=== PATIENT | female | born 1965 | race Caucasian/White ===

== ENCOUNTER 2017-06-23 15:16 | Emergency (ER) | payer BC, MEDICAID ==
[~2017-06-23] VITALS: Ht 172.7 cm; Wt 82.4 kg
[~2017-06-23 15:16] MED LIST: BACDS PO; HYDR-3965 PO; HYDR-569 PO; OMEP-84 PO; ONDA4TAB6 PO; ONDA8TAB6 PO
[2017-06-23 15:19] VITALS: BP 152/118
== END 2017-06-24 01:37 | disposition left against medical advice (07) ==
LOC: ER 15:16
DX: M54.9 Dorsalgia, unspecified (principal); Z53.21 Procedure and treatment not carried out due to patient leaving prior to being seen by health care provider

== ENCOUNTER 2017-07-30 23:01 | Emergency (ER) | payer BC, MEDICAID ==
[~2017-07-30] VITALS: Ht 172.7 cm; Wt 77.8 kg
[2017-07-31] MEDS ORDERED: HYDROcodone/acetaminophen 10/325mg tab PO ONE (00:15)
[2017-07-31] MEDS ORDERED: HYDR-3965 PO (00:20)
[2017-07-31] MEDS ORDERED: ketorolac trometh inj. 60 MG/2 ML VIAL IM ONE (00:45)
[2017-07-31 01:11] VITALS: BP 178/108
== END 2017-07-31 01:13 | disposition home or self-care (01) ==
LOC: ER 23:02
DX: S52.502A Unspecified fracture of the lower end of left radius, initial encounter for closed fracture (principal); S42.202A Unspecified fracture of upper end of left humerus, initial encounter for closed fracture; M54.5 Low back pain; I10 Essential (primary) hypertension; E11.9 Type 2 diabetes mellitus without complications; G89.29 Other chronic pain; Z88.5 Allergy status to narcotic agent; Z88.6 Allergy status to analgesic agent; Z98.890 Other specified postprocedural states; Z60.2 Problems related to living alone; Z56.0 Unemployment, unspecified; W01.0XXA Fall on same level from slipping, tripping and stumbling without subsequent striking against object, initial encounter; Y93.89 Activity, other specified; Y92.89 Other specified places as the place of occurrence of the external cause; Y99.8 Other external cause status
CPT/HCPCS: 29125; 72100; 73030; 73110; 96372; 99284; A4565; J1885

== ENCOUNTER 2017-08-01 20:41 | Emergency (ER) | payer BC, MEDICAID ==
[~2017-08-01] VITALS: Ht 172.7 cm; Wt 82.0 kg
[2017-08-01] MEDS ORDERED: ketorolac trometh inj. 60 MG/2 ML VIAL IM ONE (21:45)
[2017-08-01 22:27] VITALS: BP 169/60
== END 2017-08-01 22:29 | disposition home or self-care (01) ==
LOC: ER 20:42
DX: S62.102D Fracture of unspecified carpal bone, left wrist, subsequent encounter for fracture with routine healing (principal); I10 Essential (primary) hypertension; E11.9 Type 2 diabetes mellitus without complications; G89.29 Other chronic pain; Z98.890 Other specified postprocedural states; Z56.0 Unemployment, unspecified; Z88.5 Allergy status to narcotic agent; Z79.899 Other long term (current) drug therapy; W01.0XXD Fall on same level from slipping, tripping and stumbling without subsequent striking against object, subsequent encounter
CPT/HCPCS: 29125; 96372; 99284; J1885; J7120

== ENCOUNTER 2017-10-01 23:21 | Emergency (ER) | payer BC, MEDICAID ==
[~2017-10-01] VITALS: Ht 172.7 cm; Wt 75.0 kg
[2017-10-02] MEDS ORDERED: normal saline 1000ML IV soln IVB ONE (00:05)
[2017-10-02 00:23] LABS: BASOPHILS # (AUTO) 0.1 X10'3 (0-0.2); BASOPHILS % (AUTO) 1.2 % (0-1); EOSINOPHILS # (AUTO) 0.2 X10'3 (0-0.9); EOSINOPHILS % (AUTO) 2.7 % (0-6); HEMATOCRIT 37.6 % (35.0-45.0); HEMOGLOBIN 12.8 g/dl (12.0-16.0); LYMPHOCYTES # (AUTO) 1.6 X10'3 (1.1-4.8); LYMPHOCYTES % (AUTO) 28.7 % (21-51); MEAN CORPUSCULAR HEMOGLOBIN 30.1 PG (27.0-31.0); MEAN CORPUSCULAR VOLUME 88.4 FL (78-98); MEAN PLATELET VOLUME 8.1 FL (7.4-10.4); MONOCYTES # (AUTO) 0.6 X10'3 (0-0.9); MONOCYTES % (AUTO) 9.7 % (2-12); NEUTROPHILS # (AUTO) 3.2 X10'3 (1.8-7.7); NEUTROPHILS % (AUTO) 57.7 % (42-75); PLATELET COUNT 313 X10'3 (140-440); RED BLOOD COUNT 4.26 X10'6 (4.20-5.60); RED CELL DISTRIBUTION WIDTH 13.6 % (11.5-14.5); WHITE BLOOD COUNT 5.7 X10'3 (4.5-11.0)
[2017-10-02 00:42] LABS: ALANINE AMINOTRANSFERASE 19 U/L (12-78); ALBUMIN 3.1 G/DL (3.4-5.0); ALBUMIN/GLOBULIN RATIO 0.9 (1.1-1.5); ALKALINE PHOSPHATASE 87 IU/L (46-116); ANION GAP 10 (8-16); ASPARTATE AMINO TRANSFERASE 16 U/L (10-37); BILIRUBIN,TOTAL 0.3 MG/DL (0.1-1.0); BLOOD UREA NITROGEN 20 MG/DL (7-18); BUN/CREATININE RATIO 22.7 (6.6-38.0); CALCIUM 8.3 MG/DL (8.5-10.1); CHLORIDE 109 MMOL/L (99-107); CREATININE 0.88 MG/DL (0.40-0.90); GLUCOSE 128 MG/DL (70-104); POTASSIUM 3.4 MMOL/L (3.5-5.1); SODIUM 143 MMOL/L (135-145); TOTAL CARBON DIOXIDE 24.5 MMOL/L (24-32); TOTAL PROTEIN 6.5 G/DL (6.4-8.2); eGFR 67 ML/MIN
[2017-10-02 00:45] LABS: TROPONIN I < 0.04 NG/ML (0.0-0.05)
[2017-10-02 00:46] LABS: CLARITY,URINE CLEAR (Clear); COLOR,URINE YELLOW (Yellow); GLUCOSE, URINE NEGATIVE (Neg); KETONES,URINE NEGATIVE (Neg); LEUKOCYTE ESTERASE ,URINE NEGATIVE (Neg); NITRITES, URINE NEGATIVE (Neg); OCCULT BLOOD,URINE TRACE-LYSED (Neg); PROTEIN,URINE NEGATIVE (Neg); UROBILINOGEN,URINE 0.2 E.U/dL (0.2-1.0)
[2017-10-02 00:49] LABS: UA COLLECTION TYPE CLN CATCH MIDSTREAM
[2017-10-02 00:53] LABS: BACTERIA,URINE 2+ /HPF (Neg); RBC,URINE 0-2 /HPF (0-2); SQUAMOUS EPITHELIAL CELL,UR FEW /LPF (FEW); WBC,URINE 0-4 /HPF (0-4)
[2017-10-02 00:59] LABS: URINE AMPHETAMINE SCREEN POSITIVE (Neg); URINE BARBITUATE SCREEN NEGATIVE (Neg); URINE BENZODIAZEPINES SCREEN NEGATIVE (Neg); URINE CANNABINOID SCREEN NEGATIVE (Neg); URINE COCAINE SCREEN NEGATIVE (Neg); URINE METHADONE SCREEN NEGATIVE (Neg); URINE OPIATE SCREEN NEGATIVE (Neg); URINE PHENCYCLIDINE SCREEN NEGATIVE (Neg)
[2017-10-02 01:48] VITALS: BP 143/98
== END 2017-10-02 01:49 | disposition home or self-care (01) ==
LOC: ER 23:22
DX: E86.0 Dehydration (principal); F15.10 Other stimulant abuse, uncomplicated; I10 Essential (primary) hypertension; E11.9 Type 2 diabetes mellitus without complications; Z88.6 Allergy status to analgesic agent
CPT/HCPCS: 36415; 80053; 80305; 81001; 84484; 85025; 93005; 96360; 99285; J7030

== ENCOUNTER 2018-01-20 13:43 | Emergency (ER) | payer BC, MEDICAID ==
[~2018-01-20] VITALS: Ht 172.7 cm; Wt 83.0 kg
[2018-01-20 14:13] LABS: BASOPHILS % (AUTO) 0.3 % (0-1); EOSINOPHILS # (AUTO) 0.1 X10'3 (0-0.9); EOSINOPHILS % (AUTO) 2.6 % (0-6); HEMATOCRIT 40.3 % (35.0-45.0); LYMPHOCYTES # (AUTO) 1.3 X10'3 (1.1-4.8); MEAN CORPUSCULAR HGB CONC 34.7 % (33.0-36.5); MEAN CORPUSCULAR VOLUME 89.3 FL (78-98); MEAN PLATELET VOLUME 8.2 FL (7.4-10.4); MONOCYTES # (AUTO) 0.4 X10'3 (0-0.9); MONOCYTES % (AUTO) 7.1 % (2-12); NEUTROPHILS # (AUTO) 3.7 X10'3 (1.8-7.7); PLATELET COUNT 321 X10'3 (140-440); RED BLOOD COUNT 4.51 X10'6 (4.20-5.60); RED CELL DISTRIBUTION WIDTH 12.7 % (11.5-14.5); WHITE BLOOD COUNT 5.6 X10'3 (4.5-11.0)
[2018-01-20 14:18] LABS: PROTHROMBIN TIME 10.3 SECONDS (9.0-12.0)
[2018-01-20 14:23] LABS: ALANINE AMINOTRANSFERASE 23 U/L (12-78); ALBUMIN 3.5 G/DL (3.4-5.0); ALKALINE PHOSPHATASE 72 IU/L (46-116); ANION GAP 10 (8-16); ASPARTATE AMINO TRANSFERASE 13 U/L (10-37); BILIRUBIN,TOTAL 0.3 MG/DL (0.1-1.0); BLOOD UREA NITROGEN 20 MG/DL (7-18); BUN/CREATININE RATIO 20.2 (6.6-38.0); CALCIUM 8.7 MG/DL (8.5-10.1); CHLORIDE 107 MMOL/L (99-107); CREATININE 0.99 MG/DL (0.40-0.90); GLUCOSE 126 MG/DL (70-104); POTASSIUM 3.8 MMOL/L (3.5-5.1); SODIUM 142 MMOL/L (135-145); TOTAL CARBON DIOXIDE 25.5 MMOL/L (24-32); TOTAL PROTEIN 7.1 G/DL (6.4-8.2); eGFR 59 ML/MIN
[2018-01-20 14:25] LABS: URINE HCG NEGATIVE (NEG)
[2018-01-20 14:30] LABS: CLARITY,URINE CLEAR (Clear); COLOR,URINE YELLOW (Yellow); GLUCOSE, URINE NEGATIVE (Neg); KETONES,URINE NEGATIVE (Neg); LEUKOCYTE ESTERASE ,URINE NEGATIVE (Neg); NITRITES, URINE NEGATIVE (Neg); OCCULT BLOOD,URINE NEGATIVE (Neg); PROTEIN,URINE NEGATIVE (Neg); UROBILINOGEN,URINE 0.2 E.U/dL (0.2-1.0)
[2018-01-20 14:36] LABS: UA COLLECTION TYPE CLN CATCH MIDSTREAM
[2018-01-20] MEDS ORDERED: ondansetron 4mg rapidly disintigrating tab PO ONE (14:55)
[2018-01-20] MEDS ORDERED: famotidine 20mg tablet PO ONE (14:55)
[2018-01-20] MEDS ORDERED: ONDA4TAB9 SL (14:56)
[2018-01-20 15:37] VITALS: BP 144/97
== END 2018-01-20 15:42 | disposition home or self-care (01) ==
LOC: ER 13:44
DX: K52.9 Noninfective gastroenteritis and colitis, unspecified (principal); I10 Essential (primary) hypertension; E11.9 Type 2 diabetes mellitus without complications; G89.29 Other chronic pain; Z98.890 Other specified postprocedural states; Z60.2 Problems related to living alone; Z56.0 Unemployment, unspecified; Z88.5 Allergy status to narcotic agent; Z88.6 Allergy status to analgesic agent; Z79.2 Long term (current) use of antibiotics; Z79.899 Other long term (current) drug therapy
CPT/HCPCS: 36415; 80053; 81003; 81025; 85025; 85610; 99284

== ENCOUNTER 2018-05-29 01:18 | Emergency (ER) | payer BC, MEDICAID ==
[~2018-05-29 01:18] MED LIST changes: +HYDR-4383 PO; -HYDR-569 PO; +SULF1TAB49 PO
[2018-05-29 01:23] VITALS: BP 173/107
== END 2018-05-29 04:18 | disposition home or self-care (01) ==
LOC: ER 01:19
DX: N75.1 Abscess of Bartholin's gland (principal); I10 Essential (primary) hypertension; E11.9 Type 2 diabetes mellitus without complications; G89.29 Other chronic pain; Z56.0 Unemployment, unspecified; Z88.6 Allergy status to analgesic agent
CPT/HCPCS: 56420; 99283

== ENCOUNTER 2018-06-09 18:23 | Emergency (ER) | payer BC, MEDICAID ==
[~2018-06-09] VITALS: Ht 172.7 cm; Wt 75.0 kg
[~2018-06-09 18:23] MED LIST changes: -SULF1TAB49 PO
[2018-06-09] MEDS ORDERED: normal saline 1000ML IV soln IVB ONE (20:55)
[2018-06-09 21:14] LABS: BASOPHILS % (AUTO) 0.4 % (0-1); EOSINOPHILS # (AUTO) 0.1 X10'3 (0-0.9); EOSINOPHILS % (AUTO) 1.8 % (0-6); HEMATOCRIT 40.4 % (35.0-45.0); LYMPHOCYTES # (AUTO) 1.5 X10'3 (1.1-4.8); LYMPHOCYTES % (AUTO) 22.4 % (21-51); MEAN CORPUSCULAR HGB CONC 34.6 g/dL (33.0-36.5); MEAN CORPUSCULAR VOLUME 89.6 FL (78-98); MEAN PLATELET VOLUME 7.4 FL (7.4-10.4); MONOCYTES # (AUTO) 0.5 X10'3 (0-0.9); MONOCYTES % (AUTO) 6.7 % (2-12); NEUTROPHILS # (AUTO) 4.7 X10'3 (1.8-7.7); NEUTROPHILS % (AUTO) 68.7 % (42-75); PLATELET COUNT 404 X10'3 (140-440); RED CELL DISTRIBUTION WIDTH 12.4 % (11.5-14.5); WHITE BLOOD COUNT 6.8 X10'3 (4.5-11.0)
[2018-06-09 21:30] LABS: ALANINE AMINOTRANSFERASE 21 U/L (12-78); ALBUMIN 3.4 G/DL (3.4-5.0); ALBUMIN/GLOBULIN RATIO 0.9 (1.1-1.5); ALKALINE PHOSPHATASE 90 IU/L (46-116); ANION GAP 10 (8-16); ASPARTATE AMINO TRANSFERASE 19 U/L (10-37); BILIRUBIN,TOTAL 0.5 MG/DL (0.1-1.0); BLOOD UREA NITROGEN 20 MG/DL (7-18); BUN/CREATININE RATIO 25.3 (6.6-38.0); CALCIUM 8.9 MG/DL (8.5-10.1); CHLORIDE 103 MMOL/L (99-107); CREATININE 0.79 MG/DL (0.40-0.90); GLUCOSE 93 MG/DL (70-104); POTASSIUM 3.1 MMOL/L (3.5-5.1); SODIUM 140 MMOL/L (135-145); TOTAL CARBON DIOXIDE 26.6 MMOL/L (24-32); TOTAL PROTEIN 7.3 G/DL (6.4-8.2); eGFR 76 ML/MIN
[2018-06-09 21:32] LABS: ETHANOL < 0.010 GM/DL (0.0-0.010); TROPONIN I < 0.04 NG/ML (0.0-0.05)
[2018-06-09] MEDS ORDERED: cloNIDine 0.1 mg tablet PO ONE (21:50)
[2018-06-09] MEDS ORDERED: potassium Cl oral solution 20 MEQ/15 ML PO ONE (22:05)
[2018-06-10 00:26] VITALS: BP 141/85
== END 2018-06-10 01:17 | disposition home or self-care (01) ==
LOC: ER 18:23
DX: R55 Syncope and collapse (principal); I10 Essential (primary) hypertension; E11.9 Type 2 diabetes mellitus without complications; G89.29 Other chronic pain; F17.200 Nicotine dependence, unspecified, uncomplicated; Z88.6 Allergy status to analgesic agent; Z79.899 Other long term (current) drug therapy; Z60.2 Problems related to living alone; Z56.0 Unemployment, unspecified
CPT/HCPCS: 36415; 71045; 80053; 80320; 82140; 84484; 85025; 93005; 96360; 99284; J7030

== ENCOUNTER 2018-08-21 09:00 | Emergency (ER) | payer BC, MEDICAID ==
[~2018-08-21] VITALS: Ht 172.7 cm; Wt 75.0 kg
[2018-08-21 09:07] VITALS: BP 173/107
[2018-08-21] MEDS ORDERED: OMEP40CA37 PO (09:27)
== END 2018-08-21 09:39 | disposition home or self-care (01) ==
LOC: ER 09:01
DX: K43.9 Ventral hernia without obstruction or gangrene (principal); I10 Essential (primary) hypertension; E11.9 Type 2 diabetes mellitus without complications; G89.29 Other chronic pain; Z98.51 Tubal ligation status; Z98.890 Other specified postprocedural states; F17.200 Nicotine dependence, unspecified, uncomplicated; Z88.5 Allergy status to narcotic agent; Z88.8 Allergy status to other drugs, medicaments and biological substances; Z79.899 Other long term (current) drug therapy; Z56.0 Unemployment, unspecified; Z60.2 Problems related to living alone
CPT/HCPCS: 99283

== ENCOUNTER 2018-09-23 01:02 | Emergency (ER) | payer BC, MEDICAID ==
[~2018-09-23] VITALS: Ht 172.7 cm; Wt 79.5 kg
[2018-09-23 01:06] VITALS: BP 149/102
== END 2018-09-23 02:38 | disposition home or self-care (01) ==
LOC: ER 01:02
DX: S62.102A Fracture of unspecified carpal bone, left wrist, initial encounter for closed fracture (principal); I10 Essential (primary) hypertension; G89.29 Other chronic pain; E11.9 Type 2 diabetes mellitus without complications; F17.210 Nicotine dependence, cigarettes, uncomplicated; Z56.0 Unemployment, unspecified; Z98.51 Tubal ligation status; Z88.5 Allergy status to narcotic agent; Z88.6 Allergy status to analgesic agent; W20.8XXA Other cause of strike by thrown, projected or falling object, initial encounter; Y93.89 Activity, other specified; Y92.89 Other specified places as the place of occurrence of the external cause; Y99.8 Other external cause status
CPT/HCPCS: 29125; 73110; 99284

== ENCOUNTER 2018-10-07 11:46 | Outpatient (CLI) | payer BC, MEDICAID ==
[2018-10-07 11:49] VITALS: BP 153/83
== END 2018-10-07 13:00 | disposition home or self-care (01) ==
LOC: ORTHO 11:46
PROVIDERS: ATTEND Orthopaedic Surgery
DX: M18.9 Osteoarthritis of first carpometacarpal joint, unspecified (principal); M19.032 Primary osteoarthritis, left wrist; M85.642 Other cyst of bone, left hand
CPT/HCPCS: 29125; 73110; G0463

== ENCOUNTER 2018-12-31 22:55 | Emergency (ER) | payer BC, MEDICAID ==
[~2018-12-31] VITALS: Ht 172.7 cm; Wt 65.6 kg
[2018-12-31 23:03] VITALS: BP 157/108
[2019-01-01] MEDS ORDERED: ketorolac trometh. 30mg/ml inj. IM ONE (00:10)
[2019-01-01] MEDS ORDERED: CYCL-1 PO (00:14)
[2019-01-01] MEDS ORDERED: IBUP-1985 PO (00:14)
== END 2019-01-01 01:11 | disposition home or self-care (01) ==
LOC: ER 22:56
DX: G89.29 Other chronic pain (principal); M54.5 Low back pain; I10 Essential (primary) hypertension; Z98.51 Tubal ligation status; Z56.0 Unemployment, unspecified; Z88.6 Allergy status to analgesic agent; Z79.2 Long term (current) use of antibiotics; Z79.899 Other long term (current) drug therapy
CPT/HCPCS: 72100; 96372; 99284; J1885

== ENCOUNTER 2019-01-23 19:37 | Inpatient (IN) | payer BC, MEDICAID ==
[~2019-01-23] VITALS: Ht 170.2 cm; Wt 70.0 kg
[~2019-01-23 19:37] MED LIST changes: +CYCL-1 PO; +IBUP-1985 PO
[2019-01-23] MEDS ORDERED: morphine 4 MG/ML inj SYRINge IV ONE (19:45)
[2019-01-23] MEDS ORDERED: normal saline 1000ML IV soln IVB ONE (19:45)
[2019-01-23] MEDS ORDERED: ondansetron/PF 4mg/2ml inj IV ONE (19:45)
[2019-01-23 19:57] LABS: BASOPHILS % (AUTO) 0.5 % (0-1); EOSINOPHILS # (AUTO) 0.1 X10'3 (0-0.9); EOSINOPHILS % (AUTO) 0.9 % (0-6); HEMATOCRIT 39.8 % (35.0-45.0); HEMOGLOBIN 13.6 g/dl (12.0-16.0); LYMPHOCYTES # (AUTO) 2.1 X10'3 (1.1-4.8); LYMPHOCYTES % (AUTO) 23.9 % (21-51); MEAN CORPUSCULAR HEMOGLOBIN 31.1 PG (27.0-31.0); MEAN CORPUSCULAR HGB CONC 34.2 g/dL (33.0-36.5); MEAN CORPUSCULAR VOLUME 90.9 FL (78-98); MEAN PLATELET VOLUME 7.5 FL (7.4-10.4); MONOCYTES # (AUTO) 0.6 X10'3 (0-0.9); MONOCYTES % (AUTO) 7.5 % (2-12); NEUTROPHILS # (AUTO) 5.8 X10'3 (1.8-7.7); NEUTROPHILS % (AUTO) 67.2 % (42-75); PLATELET COUNT 405 X10'3 (140-440); RED BLOOD COUNT 4.38 X10'6 (4.20-5.60); RED CELL DISTRIBUTION WIDTH 12.5 % (11.5-14.5); WHITE BLOOD COUNT 8.7 X10'3 (4.5-11.0)
[2019-01-23] MEDS: morphine 2 MG/ML inj. syringe IV PRN ×2 (20:04→21:46)
[2019-01-23 20:07] LABS: PARTIAL THROMBOPLASTIN TIME 24 SECONDS (22-32)
[2019-01-23 20:09] LABS: ALANINE AMINOTRANSFERASE 30 U/L (12-78); ALBUMIN 3.5 G/DL (3.4-5.0); ALBUMIN/GLOBULIN RATIO 0.9 (1.1-1.5); ALKALINE PHOSPHATASE 99 IU/L (46-116); ANION GAP 14 (8-16); ASPARTATE AMINO TRANSFERASE 22 U/L (10-37); BILIRUBIN,TOTAL 0.6 MG/DL (0.1-1.0); BLOOD UREA NITROGEN 15 MG/DL (7-18); BUN/CREATININE RATIO 12.2 (6.6-38.0); CALCIUM 9.2 MG/DL (8.5-10.1); CHLORIDE 104 MMOL/L (99-107); CREATININE 1.23 MG/DL (0.40-0.90); GLUCOSE 114 MG/DL (70-104); POTASSIUM 3.3 MMOL/L (3.5-5.1); SODIUM 141 MMOL/L (135-145); TOTAL CARBON DIOXIDE 23.4 MMOL/L (24-32); TOTAL PROTEIN 7.6 G/DL (6.4-8.2); eGFR 46 ML/MIN
[2019-01-23] MEDS ORDERED: iohexol 350MG/ML 100ml bottle IV ONE (20:11)
[2019-01-23 20:17] LABS: CREATINE KINASE 185 U/L (26-192)
--- NOTE | 2019-01-23 20:18 | NUR ---
REPORTED INCIDENT TO [facility].
--- NOTE | 2019-01-23 20:43 | NUR ---
[employer] AT BEDSIDE WITH PT
[2019-01-23 21:25] LABS: URINE AMPHETAMINE SCREEN POSITIVE (Neg); URINE BARBITUATE SCREEN NEGATIVE (Neg); URINE BENZODIAZEPINES SCREEN NEGATIVE (Neg); URINE CANNABINOID SCREEN NEGATIVE (Neg); URINE COCAINE SCREEN NEGATIVE (Neg); URINE METHADONE SCREEN NEGATIVE (Neg); URINE OPIATE SCREEN POSITIVE (Neg); URINE PHENCYCLIDINE SCREEN NEGATIVE (Neg)
[2019-01-23] MEDS ORDERED: magnesium 4gm in 100ml NS 100 ML IV PRN (23:30)
[2019-01-23] MEDS ORDERED: ondansetron/PF 4mg/2ml inj IV PRN (23:30)
[2019-01-23] MEDS ORDERED: potassium Cl 20 mEq SR tablet PO PRN ×2 (23:30)
[2019-01-23] MEDS ORDERED: magnesium 2GM in 50ml NS 50 ML IV PRN (23:30)
[2019-01-23] MEDS ORDERED: magnesium Cl slow-release 64mg tablet PO PRN (23:30)
[2019-01-23] MEDS ORDERED: potassium CL 10mEq/100ml bag 100 ML IV PRN ×2 (23:30)
[2019-01-23] MEDS: normal saline 1000ml 1,000 ML IV SCH (23:43)
[2019-01-24 00:30] VITALS: BP 137/86
[2019-01-24] MEDS: HYDROmorphone 1 mg/ml syringe IV PRN (00:34)
[2019-01-24] MEDS: normal saline 1000ml 1,000 ML IV SCH ×3 (00:49→21:37)
[2019-01-24 06:00] VITALS: BP 139/84
--- NOTE | 2019-01-24 06:00 | NUR ---
Patient in room ORTHO 4014. I have received report from Keke, RN and had the opportunity to ask questions and assume patient care. Addendum: 01/24/19 at 0633 by Michelle Brown RN Amended: Links added.
--- NOTE | 2019-01-24 06:37 | NUR ---
Patient in room ORTHO 4014. I have received report from DOLLY Caicedo and had the opportunity to ask questions and assume patient care. Addendum: 01/24/19 at 0638 by Michelle Brown RN Amended: Links added.
[2019-01-24 06:56] LABS: BASOPHILS % (AUTO) 0.4 % (0-1); EOSINOPHILS # (AUTO) 0.1 X10'3 (0-0.9); HEMATOCRIT 36.4 % (35.0-45.0); HEMOGLOBIN 12.6 g/dl (12.0-16.0); LYMPHOCYTES # (AUTO) 1.5 X10'3 (1.1-4.8); LYMPHOCYTES % (AUTO) 22.5 % (21-51); MEAN CORPUSCULAR HEMOGLOBIN 31.6 PG (27.0-31.0); MEAN CORPUSCULAR HGB CONC 34.6 g/dL (33.0-36.5); MEAN CORPUSCULAR VOLUME 91.2 FL (78-98); MEAN PLATELET VOLUME 7.7 FL (7.4-10.4); MONOCYTES # (AUTO) 0.8 X10'3 (0-0.9); MONOCYTES % (AUTO) 11.6 % (2-12); NEUTROPHILS # (AUTO) 4.4 X10'3 (1.8-7.7); NEUTROPHILS % (AUTO) 64.5 % (42-75); PLATELET COUNT 285 X10'3 (140-440); RED BLOOD COUNT 3.99 X10'6 (4.20-5.60); RED CELL DISTRIBUTION WIDTH 12.7 % (11.5-14.5); WHITE BLOOD COUNT 6.9 X10'3 (4.5-11.0)
[2019-01-24] MEDS ORDERED: NO HOME MEDS (07:11)
[2019-01-24 07:22] LABS: CREATINE KINASE 202 U/L (26-192)
[2019-01-24 07:49] LABS: ALANINE AMINOTRANSFERASE 25 U/L (12-78); ALBUMIN 2.8 G/DL (3.4-5.0); ALBUMIN/GLOBULIN RATIO 0.8 (1.1-1.5); ALKALINE PHOSPHATASE 84 IU/L (46-116); ANION GAP 8 (8-16); ASPARTATE AMINO TRANSFERASE 18 U/L (10-37); BILIRUBIN,TOTAL 0.6 MG/DL (0.1-1.0); BLOOD UREA NITROGEN 14 MG/DL (7-18); BUN/CREATININE RATIO 14.9 (6.6-38.0); CALCIUM 8.1 MG/DL (8.5-10.1); CHLORIDE 108 MMOL/L (99-107); CREATININE 0.94 MG/DL (0.40-0.90); GLUCOSE 108 MG/DL (70-104); MAGNESIUM 2.1 MG/DL (1.5-2.4); PHOSPHORUS 4.5 MG/DL (2.3-4.5); POTASSIUM 3.5 MMOL/L (3.5-5.1); SODIUM 142 MMOL/L (135-145); TOTAL PROTEIN 6.2 G/DL (6.4-8.2); eGFR 62 ML/MIN
[2019-01-24] MEDS: K and/or MAG REPLACEMENT MC SCH (08:00)
[2019-01-24] MEDS: heparin, porcine 5000 units/ml vial SQ SCH ×2 (08:38→19:28)
[2019-01-24] MEDS: HYDROcodone/acetaminophen 5mg/325mg tablet PO PRN (09:06)
[2019-01-24 10:00] VITALS: BP 123/81
[2019-01-24] MEDS ORDERED: pneumococcal 23-VAL P-sac vacc 25 mcg/0.5ml vial IMVAC ONE (10:00)
--- NOTE | 2019-01-24 15:00 | NUR ---
WOUND INFECTION EDUCATION PROVIDED BY WOUND CARE 1. Patient instructed to call their primary doctor, or go the ED immediately if any of the following symptoms occur: * Increased pain in wound * Increase in drainage from the wound * Redness in the skin surrounding the wound * Warmth in the skin surrounding the wound * Bleeding from the wound * Temperature of 101 or greater 2. If any of these occur while in the hospital tell a nurse immediately. Addendum: 01/24/19 at 1500 by Gt Morin RN Amended: Links added.
[2019-01-24] MEDS: HYDROcodone/acetaminophen 10/325mg tab PO PRN (17:03)
[2019-01-24 18:00] VITALS: BP 154/95
--- NOTE | 2019-01-24 18:05 | NUR ---
Problems reprioritized. Patient report given, questions answered & plan of care reviewed with DOLLY Islas. Addendum: 01/24/19 at 1805 by Michelle Brown RN Amended: Links added.
--- NOTE | 2019-01-24 18:10 | NUR ---
Patient in room ORTHO 4014. I have received report from Michelle ALBERTO and had the opportunity to ask questions and assume patient care.
[2019-01-25] MEDS: HYDROcodone/acetaminophen 5mg/325mg tablet PO PRN
[2019-01-25 06:21] LABS: BASOPHILS % (AUTO) 0.3 % (0-1); EOSINOPHILS % (AUTO) 0.5 % (0-6); HEMATOCRIT 37.5 % (35.0-45.0); HEMOGLOBIN 12.6 g/dl (12.0-16.0); LYMPHOCYTES # (AUTO) 1.2 X10'3 (1.1-4.8); LYMPHOCYTES % (AUTO) 15.7 % (21-51); MEAN CORPUSCULAR HEMOGLOBIN 30.9 PG (27.0-31.0); MEAN CORPUSCULAR HGB CONC 33.8 g/dL (33.0-36.5); MEAN CORPUSCULAR VOLUME 91.6 FL (78-98); MONOCYTES # (AUTO) 0.9 X10'3 (0-0.9); MONOCYTES % (AUTO) 11.7 % (2-12); NEUTROPHILS # (AUTO) 5.7 X10'3 (1.8-7.7); NEUTROPHILS % (AUTO) 71.8 % (42-75); PLATELET COUNT 317 X10'3 (140-440); RED BLOOD COUNT 4.09 X10'6 (4.20-5.60); RED CELL DISTRIBUTION WIDTH 12.9 % (11.5-14.5); WHITE BLOOD COUNT 7.9 X10'3 (4.5-11.0)
--- NOTE | 2019-01-25 06:29 | NUR ---
Problems reprioritized. Patient report given, questions answered & plan of care reviewed with Michelle ALBERTO.
[2019-01-25 06:56] LABS: ALANINE AMINOTRANSFERASE 24 U/L (12-78); ALBUMIN 2.8 G/DL (3.4-5.0); ALBUMIN/GLOBULIN RATIO 0.7 (1.1-1.5); ALKALINE PHOSPHATASE 87 IU/L (46-116); ANION GAP 5 (8-16); ASPARTATE AMINO TRANSFERASE 15 U/L (10-37); BILIRUBIN,TOTAL 0.5 MG/DL (0.1-1.0); BLOOD UREA NITROGEN 7 MG/DL (7-18); BUN/CREATININE RATIO 8.1 (6.6-38.0); CALCIUM 9.1 MG/DL (8.5-10.1); CHLORIDE 108 MMOL/L (99-107); CREATINE KINASE 167 U/L (26-192); CREATININE 0.86 MG/DL (0.40-0.90); GLUCOSE 87 MG/DL (70-104); POTASSIUM 3.7 MMOL/L (3.5-5.1); SODIUM 143 MMOL/L (135-145); TOTAL CARBON DIOXIDE 29.8 MMOL/L (24-32); TOTAL PROTEIN 6.7 G/DL (6.4-8.2); eGFR 69 ML/MIN
[2019-01-25 07:03] VITALS: BP 153/93
[2019-01-25] MEDS: K and/or MAG REPLACEMENT MC SCH (08:00)
[2019-01-25] MEDS ORDERED: pneumococcal 23-VAL P-sac vacc 25 mcg/0.5ml vial IMVAC ONE (08:00)
[2019-01-25] MEDS: heparin, porcine 5000 units/ml vial SQ SCH ×2 (08:19→19:44)
[2019-01-25 11:23] VITALS: BP 143/93
[2019-01-25] MEDS: HYDROcodone/acetaminophen 10/325mg tab PO PRN (11:52)
[2019-01-25] MEDS: HYDROmorphone 1 mg/ml syringe IV PRN (15:55)
[2019-01-25] MEDS: normal saline 1000ml 1,000 ML IV SCH ×2 (17:43→22:45)
[2019-01-25 18:39] VITALS: BP 148/90
[2019-01-25 22:00] VITALS: BP 156/93
[2019-01-26] MEDS: HYDROcodone/acetaminophen 10/325mg tab PO PRN ×3 (05:33→23:34)
[2019-01-26 05:55] LABS: BASOPHILS % (AUTO) 0.3 % (0-1); EOSINOPHILS % (AUTO) 0.4 % (0-6); HEMATOCRIT 34.4 % (35.0-45.0); HEMOGLOBIN 11.9 g/dl (12.0-16.0); LYMPHOCYTES # (AUTO) 1.3 X10'3 (1.1-4.8); LYMPHOCYTES % (AUTO) 13.1 % (21-51); MEAN CORPUSCULAR HGB CONC 34.6 g/dL (33.0-36.5); MEAN CORPUSCULAR VOLUME 89.8 FL (78-98); MEAN PLATELET VOLUME 7.7 FL (7.4-10.4); MONOCYTES # (AUTO) 1.2 X10'3 (0-0.9); MONOCYTES % (AUTO) 11.9 % (2-12); NEUTROPHILS # (AUTO) 7.3 X10'3 (1.8-7.7); NEUTROPHILS % (AUTO) 74.3 % (42-75); PLATELET COUNT 313 X10'3 (140-440); RED BLOOD COUNT 3.83 X10'6 (4.20-5.60); RED CELL DISTRIBUTION WIDTH 12.8 % (11.5-14.5); WHITE BLOOD COUNT 9.9 X10'3 (4.5-11.0)
[2019-01-26 06:00] VITALS: BP 142/84
[2019-01-26 06:21] LABS: ALANINE AMINOTRANSFERASE 18 U/L (12-78); ALBUMIN 2.5 G/DL (3.4-5.0); ALBUMIN/GLOBULIN RATIO 0.7 (1.1-1.5); ALKALINE PHOSPHATASE 86 IU/L (46-116); ANION GAP 6 (8-16); ASPARTATE AMINO TRANSFERASE 9 U/L (10-37); BILIRUBIN,TOTAL 0.3 MG/DL (0.1-1.0); BLOOD UREA NITROGEN 10 MG/DL (7-18); BUN/CREATININE RATIO 11.4 (6.6-38.0); CALCIUM 7.8 MG/DL (8.5-10.1); CHLORIDE 107 MMOL/L (99-107); CREATINE KINASE 88 U/L (26-192); CREATININE 0.88 MG/DL (0.40-0.90); GLUCOSE 103 MG/DL (70-104); MAGNESIUM 1.8 MG/DL (1.5-2.4); POTASSIUM 3.7 MMOL/L (3.5-5.1); SODIUM 143 MMOL/L (135-145); TOTAL CARBON DIOXIDE 29.7 MMOL/L (24-32); TOTAL PROTEIN 6.3 G/DL (6.4-8.2); eGFR 67 ML/MIN
[2019-01-26] MEDS: heparin, porcine 5000 units/ml vial SQ SCH ×2 (07:29→19:19)
[2019-01-26] MEDS: normal saline 1000ml 1,000 ML IV SCH ×2 (07:30→19:24)
[2019-01-26] MEDS: K and/or MAG REPLACEMENT MC SCH (08:00)
[2019-01-26] MEDS: HYDROmorphone 1 mg/ml syringe IV PRN ×3 (09:18→18:42)
[2019-01-26 10:00] VITALS: BP 150/94
--- NOTE | 2019-01-26 11:02 | NUR ---
Student documentation: I have reviewed all interventions, assessments performed and documented by Lisbet Fabian. Student Medication Administration: For this medication-pass time frame, all medication were reviewed, dispensed, administered and documented per hospital policy by Lisbet Fabian.
[2019-01-26] MEDS ORDERED: silver sulfadiazine cream 400gm jar TP SCH (13:00)
[2019-01-26] MEDS: LIDOCAINE 5% OINTMENT 35GM TP SCH (13:25)
[2019-01-26] MEDS: acetaminophen 325mg tablet PO PRN (16:43)
[2019-01-26 17:30] VITALS: BP 171/106
[2019-01-26 18:05] VITALS: BP 152/101
--- NOTE | 2019-01-26 18:21 | NUR ---
Problems reprioritized. Patient report given, questions answered & plan of care reviewed with Mayra ALBERTO.
[2019-01-26] MEDS: piperacillin/tazo 3.375gm/50ml 50 ML IV SCH (19:19)
[2019-01-26] MEDS ORDERED: levoFLOXACIN 750MG TABLET PO SCH (20:00)
[2019-01-26 21:30] VITALS: BP 150/91
--- NOTE | 2019-01-26 23:51 | NUR ---
noted elevated temperature again. gave pt norco for pain - will re-eval at 0100 if needs additional tylenol for fever. pt sweaty but other VSS. ate yogurt and resting now.
[2019-01-27] MEDS: piperacillin/tazo 3.375gm/50ml 50 ML IV SCH ×3 (00:58→16:10)
[2019-01-27] MEDS: HYDROcodone/acetaminophen 10/325mg tab PO PRN ×2 (05:23→14:38)
[2019-01-27 06:00] VITALS: BP 150/85
--- NOTE | 2019-01-27 06:22 | NUR ---
reported to days. noted pt feeling better after washing hair. pain controlled with norco. anticipate new wound care orders this am. pt fever down to 99
[2019-01-27 06:29] LABS: BASOPHILS % (AUTO) 0.2 % (0-1); EOSINOPHILS % (AUTO) 0.1 % (0-6); HEMATOCRIT 33.8 % (35.0-45.0); HEMOGLOBIN 11.5 g/dl (12.0-16.0); LYMPHOCYTES % (AUTO) 7.2 % (21-51); MEAN CORPUSCULAR HEMOGLOBIN 30.9 PG (27.0-31.0); MEAN CORPUSCULAR HGB CONC 34.1 g/dL (33.0-36.5); MEAN CORPUSCULAR VOLUME 90.5 FL (78-98); MEAN PLATELET VOLUME 7.8 FL (7.4-10.4); MONOCYTES # (AUTO) 1.6 X10'3 (0-0.9); NEUTROPHILS # (AUTO) 11.5 X10'3 (1.8-7.7); NEUTROPHILS % (AUTO) 81.5 % (42-75); PLATELET COUNT 305 X10'3 (140-440); RED BLOOD COUNT 3.73 X10'6 (4.20-5.60); RED CELL DISTRIBUTION WIDTH 12.4 % (11.5-14.5); WHITE BLOOD COUNT 14.1 X10'3 (4.5-11.0)
[2019-01-27 06:55] LABS: ALANINE AMINOTRANSFERASE 22 U/L (12-78); ALBUMIN 2.2 G/DL (3.4-5.0); ALBUMIN/GLOBULIN RATIO 0.6 (1.1-1.5); ALKALINE PHOSPHATASE 79 IU/L (46-116); ANION GAP 7 (8-16); ASPARTATE AMINO TRANSFERASE 18 U/L (10-37); BILIRUBIN,TOTAL 0.8 MG/DL (0.1-1.0); BLOOD UREA NITROGEN 7 MG/DL (7-18); BUN/CREATININE RATIO 7.9 (6.6-38.0); CALCIUM 8.5 MG/DL (8.5-10.1); CHLORIDE 103 MMOL/L (99-107); CREATINE KINASE 50 U/L (26-192); CREATININE 0.89 MG/DL (0.40-0.90); GLUCOSE 95 MG/DL (70-104); MAGNESIUM 1.7 MG/DL (1.5-2.4); POTASSIUM 3.5 MMOL/L (3.5-5.1); SODIUM 139 MMOL/L (135-145); TOTAL CARBON DIOXIDE 29.1 MMOL/L (24-32); TOTAL PROTEIN 6.2 G/DL (6.4-8.2); eGFR 66 ML/MIN
[2019-01-27] MEDS: LIDOCAINE 5% OINTMENT 35GM TP SCH ×2 (08:00→20:00)
[2019-01-27] MEDS: K and/or MAG REPLACEMENT MC SCH (08:00)
--- NOTE | 2019-01-27 08:34 | NUR ---
PAGER ID: [phone] MESSAGE: [id number] Nieves Mel Do you want to get a consult for a Debridement? I am going to take down the dressing and try to culture it. Wanda [phone]
[2019-01-27] MEDS: heparin, porcine 5000 units/ml vial SQ SCH ×2 (09:31→19:37)
[2019-01-27] MEDS: HYDROmorphone 1 mg/ml syringe IV PRN (09:37)
[2019-01-27] MEDS: normal saline 1000ml 1,000 ML IV SCH ×2 (09:52→19:37)
[2019-01-27 10:00] VITALS: BP 118/74
[2019-01-27] MEDS: linezolid 600mg tablet PO SCH ×2 (10:29→19:36)
--- NOTE | 2019-01-27 10:34 | NUR ---
Dr. Velasco consulted patient. Wound dressing changed and swabbed which was sent to the lab. DR. Velasco would like to continue with the original [facility] orders, just increased to BID.
--- NOTE | 2019-01-27 11:41 | NUR ---
Student documentation: I have reviewed interventions, assessments performed and documented by Aisha TORRES [facility].
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
[2019-01-27 18:00] VITALS: BP 125/76
--- NOTE | 2019-01-27 18:24 | NUR ---
Problems reprioritized. Patient report given, questions answered & plan of care reviewed with Nate ALBERTO.
[2019-01-27] MEDS: lactobacillus rhamnosus 10,000 MMU CELLS/CAPSULE PO SCH (19:37)
[2019-01-27 22:00] VITALS: BP 137/75
[2019-01-27] MEDS: acetaminophen 325mg tablet PO PRN (22:33)
[2019-01-28] MEDS: piperacillin/tazo 3.375gm/50ml 50 ML IV SCH ×4 (00:22→23:59)
[2019-01-28] MEDS: normal saline 1000ml 1,000 ML IV SCH ×3 (04:41→18:45)
[2019-01-28] MEDS: HYDROcodone/acetaminophen 10/325mg tab PO PRN ×2 (04:44→11:08)
[2019-01-28 06:00] VITALS: BP 128/78
[2019-01-28 06:08] LABS: BASOPHILS % (AUTO) 0.2 % (0-1); EOSINOPHILS # (AUTO) 0.1 X10'3 (0-0.9); EOSINOPHILS % (AUTO) 0.5 % (0-6); HEMATOCRIT 29.8 % (35.0-45.0); HEMOGLOBIN 10.4 g/dl (12.0-16.0); LYMPHOCYTES # (AUTO) 1.1 X10'3 (1.1-4.8); LYMPHOCYTES % (AUTO) 9.5 % (21-51); MEAN CORPUSCULAR HEMOGLOBIN 31.4 PG (27.0-31.0); MEAN CORPUSCULAR HGB CONC 34.9 g/dL (33.0-36.5); MEAN CORPUSCULAR VOLUME 89.8 FL (78-98); MEAN PLATELET VOLUME 7.5 FL (7.4-10.4); MONOCYTES # (AUTO) 1.1 X10'3 (0-0.9); MONOCYTES % (AUTO) 9.7 % (2-12); NEUTROPHILS # (AUTO) 9.4 X10'3 (1.8-7.7); NEUTROPHILS % (AUTO) 80.1 % (42-75); PLATELET COUNT 327 X10'3 (140-440); RED BLOOD COUNT 3.31 X10'6 (4.20-5.60); RED CELL DISTRIBUTION WIDTH 12.4 % (11.5-14.5); WHITE BLOOD COUNT 11.8 X10'3 (4.5-11.0)
--- NOTE | 2019-01-28 06:29 | NUR ---
reported to days. noted pt walking with PT in hallway with rehab walker
[2019-01-28 06:34] LABS: ALANINE AMINOTRANSFERASE 22 U/L (12-78); ALBUMIN 1.9 G/DL (3.4-5.0); ALBUMIN/GLOBULIN RATIO 0.5 (1.1-1.5); ALKALINE PHOSPHATASE 67 IU/L (46-116); ANION GAP 6 (8-16); ASPARTATE AMINO TRANSFERASE 16 U/L (10-37); BILIRUBIN,TOTAL 0.5 MG/DL (0.1-1.0); BLOOD UREA NITROGEN 11 MG/DL (7-18); BUN/CREATININE RATIO 13.4 (6.6-38.0); CALCIUM 7.8 MG/DL (8.5-10.1); CHLORIDE 108 MMOL/L (99-107); CREATINE KINASE 33 U/L (26-192); CREATININE 0.82 MG/DL (0.40-0.90); GLUCOSE 108 MG/DL (70-104); PHOSPHORUS 3.2 MG/DL (2.3-4.5); POTASSIUM 3.5 MMOL/L (3.5-5.1); SODIUM 142 MMOL/L (135-145); TOTAL CARBON DIOXIDE 27.6 MMOL/L (24-32); TOTAL PROTEIN 5.7 G/DL (6.4-8.2); eGFR 73 ML/MIN
[2019-01-28] MEDS: heparin, porcine 5000 units/ml vial SQ SCH ×2 (07:31→19:58)
[2019-01-28] MEDS: lactobacillus rhamnosus 10,000 MMU CELLS/CAPSULE PO SCH ×2 (07:31→19:57)
[2019-01-28] MEDS: linezolid 600mg tablet PO SCH ×2 (07:31→19:57)
[2019-01-28] MEDS: HYDROmorphone 1 mg/ml syringe IV PRN (07:32)
[2019-01-28] MEDS: K and/or MAG REPLACEMENT MC SCH (08:00)
[2019-01-28] MEDS: LIDOCAINE 5% OINTMENT 35GM TP SCH (08:14)
[2019-01-28 10:00] VITALS: BP 105/67
[2019-01-28 18:00] VITALS: BP 130/83
--- NOTE | 2019-01-28 18:38 | NUR ---
Problems reprioritized. Patient report given, questions answered & plan of care reviewed with Mayra Carnes RN.
[2019-01-28] MEDS: sennosides/docusate sodium tablet PO SCH (20:52)
[2019-01-28] MEDS: magnesium hydroxide 30ml (MOM) UD suspension PO PRN (20:52)
[2019-01-28 22:00] VITALS: BP 129/73
[2019-01-29] MEDS: acetaminophen 325mg tablet PO PRN (00:04)
[2019-01-29] MEDS: LIDOCAINE 5% OINTMENT 35GM TP SCH ×2 (00:07→08:00)
--- NOTE | 2019-01-29 03:57 | NUR ---
reviewed and agree with SRN assessment.
[2019-01-29] MEDS: normal saline 1000ml 1,000 ML IV SCH ×2 (03:59→22:46)
[2019-01-29 06:00] VITALS: BP 133/81
--- NOTE | 2019-01-29 06:18 | NUR ---
Problems reprioritized. Patient report given, questions answered & plan of care reviewed with DOLLY Aviles.
[2019-01-29] MEDS: HYDROmorphone 1 mg/ml syringe IV PRN ×2 (06:45→11:45)
[2019-01-29] MEDS: K and/or MAG REPLACEMENT MC SCH (08:00)
[2019-01-29] MEDS: docusate sod 100mg capsule PO SCH (09:16)
[2019-01-29] MEDS: piperacillin/tazo 3.375gm/50ml 50 ML IV SCH ×2 (09:16→17:37)
[2019-01-29] MEDS: sennosides/docusate sodium tablet PO SCH ×2 (09:17→19:54)
[2019-01-29] MEDS: magnesium hydroxide 30ml (MOM) UD suspension PO PRN (09:17)
[2019-01-29] MEDS: linezolid 600mg tablet PO SCH ×2 (09:17→19:54)
[2019-01-29] MEDS: HYDROcodone/acetaminophen 10/325mg tab PO PRN ×2 (09:18→17:37)
[2019-01-29] MEDS: heparin, porcine 5000 units/ml vial SQ SCH ×2 (09:19→19:55)
[2019-01-29] MEDS: lactobacillus rhamnosus 10,000 MMU CELLS/CAPSULE PO SCH ×2 (09:21→19:54)
[2019-01-29 10:00] VITALS: BP 116/74
[2019-01-29 11:11] LABS: BASOPHILS % (AUTO) 0.2 % (0-1); EOSINOPHILS # (AUTO) 0.1 X10'3 (0-0.9); EOSINOPHILS % (AUTO) 1.3 % (0-6); HEMATOCRIT 30.4 % (35.0-45.0); HEMOGLOBIN 10.5 g/dl (12.0-16.0); LYMPHOCYTES % (AUTO) 11.3 % (21-51); MEAN CORPUSCULAR HGB CONC 34.5 g/dL (33.0-36.5); MEAN CORPUSCULAR VOLUME 89.8 FL (78-98); MEAN PLATELET VOLUME 7.4 FL (7.4-10.4); MONOCYTES # (AUTO) 0.8 X10'3 (0-0.9); NEUTROPHILS # (AUTO) 7.2 X10'3 (1.8-7.7); NEUTROPHILS % (AUTO) 78.2 % (42-75); PLATELET COUNT 416 X10'3 (140-440); RED BLOOD COUNT 3.38 X10'6 (4.20-5.60); RED CELL DISTRIBUTION WIDTH 12.6 % (11.5-14.5); WHITE BLOOD COUNT 9.2 X10'3 (4.5-11.0)
[2019-01-29 11:25] LABS: ALANINE AMINOTRANSFERASE 27 U/L (12-78); ALBUMIN 2.1 G/DL (3.4-5.0); ALBUMIN/GLOBULIN RATIO 0.5 (1.1-1.5); ALKALINE PHOSPHATASE 73 IU/L (46-116); ANION GAP 6 (8-16); ASPARTATE AMINO TRANSFERASE 19 U/L (10-37); BILIRUBIN,TOTAL 0.5 MG/DL (0.1-1.0); BLOOD UREA NITROGEN 11 MG/DL (7-18); BUN/CREATININE RATIO 14.9 (6.6-38.0); CALCIUM 7.7 MG/DL (8.5-10.1); CHLORIDE 107 MMOL/L (99-107); CREATININE 0.74 MG/DL (0.40-0.90); GLUCOSE 90 MG/DL (70-104); POTASSIUM 3.5 MMOL/L (3.5-5.1); SODIUM 143 MMOL/L (135-145); TOTAL CARBON DIOXIDE 29.7 MMOL/L (24-32); TOTAL PROTEIN 6.4 G/DL (6.4-8.2); eGFR 82 ML/MIN
[2019-01-29] MEDS ORDERED: gadobutrol 10mmol/10ml inj. IV ONE (14:30)
[2019-01-29 18:00] VITALS: BP 124/78
[2019-01-29 22:00] VITALS: BP 133/78
[2019-01-29] MEDS: HYDROcodone/acetaminophen 5mg/325mg tablet PO PRN (22:45)
--- NOTE | 2019-01-30 | NUR ---
thigh measures 66 cm on L thigh at largest point (marked on thigh for next measurement). R thigh measures 51cm
[2019-01-30] MEDS: LIDOCAINE 5% OINTMENT 35GM TP SCH ×3 (00:26→19:08)
[2019-01-30] MEDS: piperacillin/tazo 3.375gm/50ml 50 ML IV SCH ×3 (00:27→15:57)
[2019-01-30] MEDS: HYDROcodone/acetaminophen 10/325mg tab PO PRN ×2 (03:28→15:09)
[2019-01-30] MEDS: normal saline 1000ml 1,000 ML IV SCH ×3 (05:26→20:20)
[2019-01-30 06:00] VITALS: BP 120/69
--- NOTE | 2019-01-30 06:14 | NUR ---
Problems reprioritized. Patient report given, questions answered & plan of care reviewed with DOLLY Muñoz.
[2019-01-30] MEDS: HYDROmorphone 1 mg/ml syringe IV PRN ×2 (07:28→15:56)
[2019-01-30] MEDS: heparin, porcine 5000 units/ml vial SQ SCH ×2 (07:39→19:07)
[2019-01-30] MEDS: docusate sod 100mg capsule PO SCH (07:42)
[2019-01-30] MEDS: lactobacillus rhamnosus 10,000 MMU CELLS/CAPSULE PO SCH ×2 (07:42→19:06)
[2019-01-30] MEDS: sennosides/docusate sodium tablet PO SCH ×2 (07:42→19:07)
[2019-01-30] MEDS: linezolid 600mg tablet PO SCH ×2 (07:48→19:06)
[2019-01-30] MEDS: K and/or MAG REPLACEMENT MC SCH (08:00)
[2019-01-30 09:16] LABS: BASOPHILS % (AUTO) 0.5 % (0-1); EOSINOPHILS # (AUTO) 0.2 X10'3 (0-0.9); EOSINOPHILS % (AUTO) 2.7 % (0-6); HEMATOCRIT 28.7 % (35.0-45.0); HEMOGLOBIN 9.7 g/dl (12.0-16.0); LYMPHOCYTES # (AUTO) 1.3 X10'3 (1.1-4.8); LYMPHOCYTES % (AUTO) 16.9 % (21-51); MEAN CORPUSCULAR HGB CONC 33.9 g/dL (33.0-36.5); MEAN CORPUSCULAR VOLUME 91.5 FL (78-98); MEAN PLATELET VOLUME 7.2 FL (7.4-10.4); MONOCYTES # (AUTO) 0.7 X10'3 (0-0.9); MONOCYTES % (AUTO) 9.7 % (2-12); NEUTROPHILS # (AUTO) 5.4 X10'3 (1.8-7.7); NEUTROPHILS % (AUTO) 70.2 % (42-75); PLATELET COUNT 415 X10'3 (140-440); RED BLOOD COUNT 3.14 X10'6 (4.20-5.60); RED CELL DISTRIBUTION WIDTH 12.6 % (11.5-14.5); WHITE BLOOD COUNT 7.7 X10'3 (4.5-11.0)
[2019-01-30 09:18] LABS: ALANINE AMINOTRANSFERASE 31 U/L (12-78); ALBUMIN 1.9 G/DL (3.4-5.0); ALBUMIN/GLOBULIN RATIO 0.5 (1.1-1.5); ALKALINE PHOSPHATASE 66 IU/L (46-116); ANION GAP 6 (8-16); ASPARTATE AMINO TRANSFERASE 23 U/L (10-37); BLOOD UREA NITROGEN 9 MG/DL (7-18); BUN/CREATININE RATIO 13.8 (6.6-38.0); CALCIUM 8.5 MG/DL (8.5-10.1); CHLORIDE 109 MMOL/L (99-107); CREATININE 0.65 MG/DL (0.40-0.90); GLUCOSE 76 MG/DL (70-104); MAGNESIUM 2.2 MG/DL (1.5-2.4); POTASSIUM 3.8 MMOL/L (3.5-5.1); SODIUM 144 MMOL/L (135-145); TOTAL CARBON DIOXIDE 29.3 MMOL/L (24-32); eGFR > 90 ML/MIN
[2019-01-30 10:00] VITALS: BP 126/74
[2019-01-30 10:20] LABS: BILIRUBIN,TOTAL 0.3 MG/DL (0.1-1.0)
--- NOTE | 2019-01-30 15:03 | NUR ---
Dr. Quevedo in to consult. Page to Dr. Monahan
--- NOTE | 2019-01-30 15:06 | NUR ---
[id number] Sara Pickett Dr. in to see patient. Recommends Tordal for inflammation. Did you let Dr. Velasco know the cultures are up? Wanda [phone]
[2019-01-30] MEDS: ketorolac trometh. 30mg/ml inj. IV SCH ×2 (15:57→19:06)
[2019-01-30 17:00] VITALS: BP 121/81
--- NOTE | 2019-01-30 18:29 | NUR ---
Problems reprioritized. Patient report given, questions answered & plan of care reviewed with Janel ALBERTO.
--- NOTE | 2019-01-30 18:30 | NUR ---
Patient in room ORTHO 4014. I have received report from Wanda ALBERTO and had the opportunity to ask questions and assume patient care.
[2019-01-30 22:00] VITALS: BP 121/74
[2019-01-31] MEDS: piperacillin/tazo 3.375gm/50ml 50 ML IV SCH ×4 (00:24→23:13)
[2019-01-31] MEDS: ketorolac trometh. 30mg/ml inj. IV SCH ×4 (01:51→19:07)
[2019-01-31 06:00] VITALS: BP 110/89
--- NOTE | 2019-01-31 06:21 | NUR ---
Problems reprioritized. Patient report given, questions answered & plan of care reviewed with Wanda ALBERTO.
[2019-01-31 06:53] LABS: BASOPHILS % (AUTO) 0.4 % (0-1); EOSINOPHILS # (AUTO) 0.2 X10'3 (0-0.9); EOSINOPHILS % (AUTO) 3.8 % (0-6); HEMATOCRIT 27.9 % (35.0-45.0); HEMOGLOBIN 9.5 g/dl (12.0-16.0); LYMPHOCYTES % (AUTO) 15.7 % (21-51); MEAN CORPUSCULAR HEMOGLOBIN 31.2 PG (27.0-31.0); MEAN CORPUSCULAR HGB CONC 34.1 g/dL (33.0-36.5); MEAN CORPUSCULAR VOLUME 91.3 FL (78-98); MEAN PLATELET VOLUME 6.8 FL (7.4-10.4); MONOCYTES # (AUTO) 0.7 X10'3 (0-0.9); MONOCYTES % (AUTO) 10.2 % (2-12); NEUTROPHILS # (AUTO) 4.5 X10'3 (1.8-7.7); NEUTROPHILS % (AUTO) 69.9 % (42-75); PLATELET COUNT 428 X10'3 (140-440); RED BLOOD COUNT 3.06 X10'6 (4.20-5.60); RED CELL DISTRIBUTION WIDTH 13.1 % (11.5-14.5); WHITE BLOOD COUNT 6.5 X10'3 (4.5-11.0)
[2019-01-31 07:08] LABS: ALANINE AMINOTRANSFERASE 37 U/L (12-78); ALBUMIN 1.9 G/DL (3.4-5.0); ALBUMIN/GLOBULIN RATIO 0.5 (1.1-1.5); ALKALINE PHOSPHATASE 64 IU/L (46-116); ANION GAP 6 (8-16); ASPARTATE AMINO TRANSFERASE 26 U/L (10-37); BILIRUBIN,TOTAL 0.3 MG/DL (0.1-1.0); BLOOD UREA NITROGEN 8 MG/DL (7-18); BUN/CREATININE RATIO 11.6 (6.6-38.0); CALCIUM 8.1 MG/DL (8.5-10.1); CHLORIDE 111 MMOL/L (99-107); CREATININE 0.69 MG/DL (0.40-0.90); GLUCOSE 85 MG/DL (70-104); POTASSIUM 3.7 MMOL/L (3.5-5.1); SODIUM 146 MMOL/L (135-145); TOTAL CARBON DIOXIDE 29.1 MMOL/L (24-32); eGFR 89 ML/MIN
[2019-01-31] MEDS: K and/or MAG REPLACEMENT MC SCH (08:00)
[2019-01-31] MEDS: heparin, porcine 5000 units/ml vial SQ SCH ×2 (08:51→19:07)
[2019-01-31] MEDS: docusate sod 100mg capsule PO SCH (08:52)
[2019-01-31] MEDS: LIDOCAINE 5% OINTMENT 35GM TP SCH ×2 (08:52→20:44)
[2019-01-31] MEDS: HYDROcodone/acetaminophen 10/325mg tab PO PRN (08:52)
[2019-01-31] MEDS: linezolid 600mg tablet PO SCH (08:52)
[2019-01-31] MEDS: sennosides/docusate sodium tablet PO SCH ×2 (08:52→20:00)
[2019-01-31] MEDS: lactobacillus rhamnosus 10,000 MMU CELLS/CAPSULE PO SCH ×2 (08:52→19:07)
--- NOTE | 2019-01-31 09:22 | NUR ---
Dr. Velasco in to see patient and look at wound. Dressing taken down and changed per orders, cleaned with NS, applied emolsion dressing, nonadherant, and kerlex wrap with medipore tape.
[2019-01-31 10:00] VITALS: BP 118/66
[2019-01-31] MEDS: normal saline 1000ml 1,000 ML IV SCH ×2 (11:26→20:43)
[2019-01-31 18:00] VITALS: BP 146/94
--- NOTE | 2019-01-31 18:25 | NUR ---
6Problems reprioritized. Patient report given, questions answered & plan of care reviewed with []. Addendum: 02/01/19 at 0402 by Janel Can RN Patient in room ORTHO 4014. I have received report from Wanda ALBERTO and had the opportunity to ask questions and assume patient care.
--- NOTE | 2019-01-31 18:26 | NUR ---
Problems reprioritized. Patient report given, questions answered & plan of care reviewed with Janel ALBERTO.
[2019-01-31 22:00] VITALS: BP 147/84
[2019-02-01] MEDS: ketorolac trometh. 30mg/ml inj. IV SCH ×3 (01:37→14:00)
[2019-02-01] MEDS: temazepam 15mg capsule PO PRN ×2 (02:33→22:10)
[2019-02-01 05:32] LABS: BASOPHILS # (AUTO) 0.1 X10'3 (0-0.2); BASOPHILS % (AUTO) 0.7 % (0-1); EOSINOPHILS # (AUTO) 0.3 X10'3 (0-0.9); EOSINOPHILS % (AUTO) 3.7 % (0-6); HEMATOCRIT 27.1 % (35.0-45.0); HEMOGLOBIN 9.4 g/dl (12.0-16.0); LYMPHOCYTES # (AUTO) 1.2 X10'3 (1.1-4.8); LYMPHOCYTES % (AUTO) 15.8 % (21-51); MEAN CORPUSCULAR HEMOGLOBIN 31.8 PG (27.0-31.0); MEAN CORPUSCULAR HGB CONC 34.6 g/dL (33.0-36.5); MEAN PLATELET VOLUME 6.7 FL (7.4-10.4); MONOCYTES # (AUTO) 0.8 X10'3 (0-0.9); MONOCYTES % (AUTO) 9.9 % (2-12); NEUTROPHILS # (AUTO) 5.3 X10'3 (1.8-7.7); NEUTROPHILS % (AUTO) 69.9 % (42-75); PLATELET COUNT 455 X10'3 (140-440); RED BLOOD COUNT 2.95 X10'6 (4.20-5.60); WHITE BLOOD COUNT 7.6 X10'3 (4.5-11.0)
[2019-02-01 06:00] VITALS: BP 124/80
[2019-02-01 06:30] LABS: ALANINE AMINOTRANSFERASE 52 U/L (12-78); ALBUMIN/GLOBULIN RATIO 0.5 (1.1-1.5); ALKALINE PHOSPHATASE 67 IU/L (46-116); ANION GAP 8 (8-16); ASPARTATE AMINO TRANSFERASE 43 U/L (10-37); BILIRUBIN,TOTAL 0.3 MG/DL (0.1-1.0); BLOOD UREA NITROGEN 13 MG/DL (7-18); BUN/CREATININE RATIO 13.8 (6.6-38.0); CALCIUM 8.6 MG/DL (8.5-10.1); CHLORIDE 111 MMOL/L (99-107); CREATININE 0.94 MG/DL (0.40-0.90); GLUCOSE 87 MG/DL (70-104); POTASSIUM 3.7 MMOL/L (3.5-5.1); SODIUM 147 MMOL/L (135-145); TOTAL CARBON DIOXIDE 28.3 MMOL/L (24-32); eGFR 62 ML/MIN
[2019-02-01] MEDS: docusate sod 100mg capsule PO SCH (06:58)
[2019-02-01] MEDS: sennosides/docusate sodium tablet PO SCH ×2 (06:59→20:00)
[2019-02-01] MEDS: normal saline 1000ml 1,000 ML IV SCH (07:39)
[2019-02-01] MEDS: lactobacillus rhamnosus 10,000 MMU CELLS/CAPSULE PO SCH ×2 (07:40→21:26)
[2019-02-01] MEDS: piperacillin/tazo 3.375gm/50ml 50 ML IV SCH ×2 (07:40→16:48)
[2019-02-01] MEDS: LIDOCAINE 5% OINTMENT 35GM TP SCH ×2 (07:40→21:34)
[2019-02-01] MEDS: K and/or MAG REPLACEMENT MC SCH (07:41)
[2019-02-01] MEDS: heparin, porcine 5000 units/ml vial SQ SCH ×2 (07:41→21:27)
[2019-02-01] MEDS: HYDROcodone/acetaminophen 10/325mg tab PO PRN ×3 (08:04→21:27)
[2019-02-01 10:00] VITALS: BP 138/85
--- NOTE | 2019-02-01 11:42 | NUR ---
reassessment: Pt PO 100% regular diet meeting needs. LBM 01/31. Na 147 w/ NS d/c'd today. No nutrition concerns at this time; will continue to monitor. Rec: 1. continue regular diet 2. bowel care as needed 3. wt per rx Addendum: 02/01/19 at [address] Amended: Links added.
[2019-02-01 18:00] VITALS: BP 135/98
--- NOTE | 2019-02-01 18:39 | NUR ---
Problems reprioritized. Patient report given, questions answered & plan of care reviewed with Rose ALBERTO.
[2019-02-01 22:00] VITALS: BP 141/89
[2019-02-02] VITALS (18 sets, daily range): BP systolic 117–168; BP diastolic 69–109
[2019-02-02] MEDS: piperacillin/tazo 3.375gm/50ml 50 ML IV SCH ×3 (00:48→15:35)
[2019-02-02] MEDS: HYDROmorphone 1 mg/ml syringe IV PRN (04:55)
--- NOTE | 2019-02-02 06:17 | NUR ---
I have received patient report from Susanne ALBERTO
--- NOTE | 2019-02-02 06:39 | NUR ---
Problems reprioritized. Patient report given, questions answered & plan of care reviewed with Lidia ALBERTO.
[2019-02-02] MEDS: docusate sod 100mg capsule PO SCH (08:00)
[2019-02-02] MEDS: K and/or MAG REPLACEMENT MC SCH (08:00)
[2019-02-02] MEDS: sennosides/docusate sodium tablet PO SCH ×2 (08:00→22:11)
[2019-02-02] MEDS: LIDOCAINE 5% OINTMENT 35GM TP SCH ×2 (08:00→22:11)
[2019-02-02 08:37] LABS: EOSINOPHILS # (AUTO) 0.3 X10'3 (0-0.9); HEMOGLOBIN 11.2 g/dl (12.0-16.0); LYMPHOCYTES # (AUTO) 1.6 X10'3 (1.1-4.8); LYMPHOCYTES % (AUTO) 18.8 % (21-51); MEAN PLATELET VOLUME 6.4 FL (7.4-10.4); WHITE BLOOD COUNT 8.5 X10'3 (4.5-11.0)
[2019-02-02 08:38] LABS: BASOPHILS # (AUTO) 0.1 X10'3 (0-0.2); BASOPHILS % (AUTO) 0.7 % (0-1); EOSINOPHILS % (AUTO) 3.8 % (0-6); HEMATOCRIT 33.3 % (35.0-45.0); MEAN CORPUSCULAR HGB CONC 33.6 g/dL (33.0-36.5); MEAN CORPUSCULAR VOLUME 92.2 FL (78-98); MONOCYTES # (AUTO) 0.8 X10'3 (0-0.9); NEUTROPHILS # (AUTO) 5.8 X10'3 (1.8-7.7); NEUTROPHILS % (AUTO) 67.7 % (42-75); PLATELET COUNT 596 X10'3 (140-440); RED BLOOD COUNT 3.61 X10'6 (4.20-5.60); RED CELL DISTRIBUTION WIDTH 13.3 % (11.5-14.5)
[2019-02-02] MEDS: lactobacillus rhamnosus 10,000 MMU CELLS/CAPSULE PO SCH ×2 (08:38→22:11)
[2019-02-02] MEDS: HYDROcodone/acetaminophen 10/325mg tab PO PRN ×2 (08:38→15:35)
[2019-02-02] MEDS: heparin, porcine 5000 units/ml vial SQ SCH (08:42)
[2019-02-02 08:55] LABS: ALANINE AMINOTRANSFERASE 95 U/L (12-78); ALBUMIN 2.5 G/DL (3.4-5.0); ALBUMIN/GLOBULIN RATIO 0.5 (1.1-1.5); ALKALINE PHOSPHATASE 84 IU/L (46-116); ANION GAP 10 (8-16); ASPARTATE AMINO TRANSFERASE 71 U/L (10-37); BILIRUBIN,TOTAL 0.3 MG/DL (0.1-1.0); BLOOD UREA NITROGEN 15 MG/DL (7-18); BUN/CREATININE RATIO 17.9 (6.6-38.0); CHLORIDE 104 MMOL/L (99-107); CREATININE 0.84 MG/DL (0.40-0.90); GLUCOSE 91 MG/DL (70-104); POTASSIUM 4.3 MMOL/L (3.5-5.1); SODIUM 140 MMOL/L (135-145); TOTAL CARBON DIOXIDE 25.7 MMOL/L (24-32); TOTAL PROTEIN 7.3 G/DL (6.4-8.2); eGFR 71 ML/MIN
[2019-02-02] MEDS ORDERED: iohexol 300mg/ml 100ml inj. ONE (18:03)
[2019-02-02] MEDS ORDERED: morphine 4 MG/ML inj SYRINge IV PRN (18:20)
[2019-02-02] MEDS ORDERED: ondansetron/PF 4mg/2ml inj IV PRN ×2 (18:20→20:50)
[2019-02-02] MEDS ORDERED: fentaNYL/PF 50MCG/1 ML 2ML syringe IV PRN (18:20)
[2019-02-02] MEDS ORDERED: ringers solution, lacted 1,000 ML IV SCH (18:20)
[2019-02-02] MEDS ORDERED: labetalol 20mg/4ml (5mg/ml) syringe IV PRN (18:20)
[2019-02-02] MEDS ORDERED: hydrALAZINE 20mg/ml inj. IV PRN (18:20)
--- NOTE | 2019-02-02 18:30 | NUR ---
REPORT REC'D FROM DOLLY BROWN. PT IS OFF THE FLOOR TO CT, PRIOR TO SURGERY WITHIN THE HOUR.
--- NOTE | 2019-02-02 18:31 | NUR ---
I have given patient report to Inna ALBERTO
[2019-02-02] MEDS ORDERED: LIDOcaine 2% (20mg/ml) 5ml vial ONE (18:52)
[2019-02-02] MEDS ORDERED: propofol inj 20 ML IV ONE (18:52)
--- NOTE | 2019-02-02 19:30 | NUR ---
PT IS PREPPED FOR SX, AND IS BEING TRANSFERRED VIA HOSPITAL BED AND ONE ATTENDANT.
[2019-02-02 19:50] LABS: ISTAT CREATININE 0.9 mg/dL (0.6-1.1); ISTAT HGB 9.9 g/dl (12.0-16.0); ISTAT IONIZED CALCIUM 1.15 mmol/L (1.03-1.32); ISTAT K 4.1 mmol/L (3.5-5.1); POC BUN/CREATININE RATIO 18.9 (6.6-38.0)
[2019-02-02] MEDS ORDERED: midazolam 2 mg/2 ml injection ONE (20:06)
[2019-02-02] MEDS ORDERED: fentaNYL/PF 50MCG/1 ML 2ML syringe ONE (20:06)
[2019-02-02] MEDS ORDERED: dexamethasone sod phosphate 10mg/ml inj ONE (20:07)
[2019-02-02] MEDS ORDERED: ondansetron/PF 4mg/2ml inj ONE (20:07)
[2019-02-02] MEDS ORDERED: sevoflurane 250ml liquid IH ONE (20:07)
--- NOTE | 2019-02-02 20:40 | NUR ---
PT IS BEING TRANSFERRED TO SURGICAL FLOOR, RM 350A. DID NOT RETURN FROM SX TO ORTHO FLOOR. ALL PERSONAL ITEMS AND HOSPITAL WOUND CARE SUPPLIES SENT WITH PT TO SURGICAL ROOM 350A.
--- NOTE | 2019-02-02 20:50 | NUR ---
Received from OR via BED , accompanied by Anesthesiologist DR DR ELI and report given by Anesthesiolgist. PATIENT WAKING UP, DENIES PAIN, V/S WNL, NEUROVASCULAR CHECKS INTACT,22G PIV LUE , DRESSING TO LEFT LEG CDI
[2019-02-02] MEDS: fentaNYL/PF 50MCG/1 ML 2ML syringe IV PRN ×2 (21:05→21:06)
[2019-02-02] MEDS: morphine 4 MG/ML inj SYRINge IV PRN ×2 (21:10→21:17)
--- NOTE | 2019-02-02 21:39 | NUR ---
PATIENT VERY PAINFULL, USER SUPPORT ANALYST ORDERED PER DR PITTS
--- NOTE | 2019-02-02 21:50 | NUR ---
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 BOLUS GIVEN 2 X AND PATIENT HAS DEMO USE CORRECTLY OF BUTTON, V/S WNL, NEUROVASCULAR CHECKS INTACT,22G PIV LUE , DRESSING TO LEFT LEG CDI . PATIENT TAKEN TO 360A WITH ALL BELONGINGS AND HOOKED UP TO MONITORS IN ROOM AND REPORT GIVEN TO MILITARY PROFESSIONAL SAMANTHA WHO HAS TAKEN OVER PATIENT CARE.
[2019-02-02] MEDS: HYDROmorphone/NS 1 mg/ml CADD 50 ML IV SCH ×2 (21:58→23:00)
--- NOTE | 2019-02-02 22:00 | NUR ---
Assume care from Recovery Nurse Ney ALBERTO. Patient arrived to room and oriented to environment. Patient is awake and alert Oriented x4. CADD pump started complaining of pain 10/10 to her left leg. Dressing is CDI. Good palpable pedal pulses. Will continue with care.
[2019-02-03] VITALS (7 sets, daily range): BP systolic 125–148; BP diastolic 64–88
[2019-02-03] MEDS: piperacillin/tazo 3.375gm/50ml 50 ML IV SCH ×3 (00:06→17:02)
[2019-02-03] MEDS: HYDROmorphone/NS 1 mg/ml CADD 50 ML IV SCH ×12 (01:00→23:00)
[2019-02-03 06:01] LABS: BASOPHILS % (AUTO) 0.2 % (0-1); EOSINOPHILS % (AUTO) 0 % (0-6); HEMATOCRIT 31.1 % (35.0-45.0); HEMOGLOBIN 10.7 g/dl (12.0-16.0); LYMPHOCYTES # (AUTO) 0.6 X10'3 (1.1-4.8); LYMPHOCYTES % (AUTO) 5.4 % (21-51); MEAN CORPUSCULAR HEMOGLOBIN 31.8 PG (27.0-31.0); MEAN CORPUSCULAR HGB CONC 34.5 g/dL (33.0-36.5); MEAN CORPUSCULAR VOLUME 92.3 FL (78-98); MEAN PLATELET VOLUME 6.3 FL (7.4-10.4); MONOCYTES # (AUTO) 0.1 X10'3 (0-0.9); MONOCYTES % (AUTO) 1.1 % (2-12); NEUTROPHILS # (AUTO) 9.8 X10'3 (1.8-7.7); NEUTROPHILS % (AUTO) 93.3 % (42-75); PLATELET COUNT 634 X10'3 (140-440); RED BLOOD COUNT 3.37 X10'6 (4.20-5.60); RED CELL DISTRIBUTION WIDTH 13.1 % (11.5-14.5); WHITE BLOOD COUNT 10.5 X10'3 (4.5-11.0)
[2019-02-03 06:12] LABS: ALANINE AMINOTRANSFERASE 109 U/L (12-78); ALBUMIN 2.7 G/DL (3.4-5.0); ALBUMIN/GLOBULIN RATIO 0.6 (1.1-1.5); ALKALINE PHOSPHATASE 90 IU/L (46-116); ANION GAP 8 (8-16); ASPARTATE AMINO TRANSFERASE 69 U/L (10-37); BILIRUBIN,TOTAL 0.3 MG/DL (0.1-1.0); BLOOD UREA NITROGEN 15 MG/DL (7-18); BUN/CREATININE RATIO 15.2 (6.6-38.0); CALCIUM 9.2 MG/DL (8.5-10.1); CHLORIDE 104 MMOL/L (99-107); CREATININE 0.99 MG/DL (0.40-0.90); GLUCOSE 159 MG/DL (70-104); POTASSIUM 3.9 MMOL/L (3.5-5.1); SODIUM 140 MMOL/L (135-145); TOTAL CARBON DIOXIDE 27.8 MMOL/L (24-32); TOTAL PROTEIN 7.6 G/DL (6.4-8.2); eGFR 58 ML/MIN
--- NOTE | 2019-02-03 07:00 | NUR ---
at 0700 CADD dose given showed 2.6 mg. Accidentally cleared to 0.00 mg.
[2019-02-03 07:42] LABS: LARGE PLATELETS FEW; PLATELET ESTIMATE INCREASED
--- NOTE | 2019-02-03 07:46 | NUR ---
Patient in room JAYJAY 360. I have received report from DOLLY Skinner and had the opportunity to ask questions and assume patient care.
[2019-02-03] MEDS: docusate sod 100mg capsule PO SCH (08:00)
[2019-02-03] MEDS: LIDOCAINE 5% OINTMENT 35GM TP SCH ×2 (08:00→20:00)
[2019-02-03] MEDS: K and/or MAG REPLACEMENT MC SCH (08:00)
[2019-02-03] MEDS: sennosides/docusate sodium tablet PO SCH ×2 (08:00→20:00)
[2019-02-03] MEDS: lactobacillus rhamnosus 10,000 MMU CELLS/CAPSULE PO SCH ×2 (08:32→20:34)
[2019-02-03] MEDS ORDERED: FLU VACC QS2019-20 36MOS UP/PF 60 MCG/0.5 ML SYRINGE IMVAC ONE (10:00)
[2019-02-03] MEDS ORDERED: pneumococcal 23-VAL P-sac vacc 25 mcg/0.5ml vial IMVAC ONE (10:00)
[2019-02-03] MEDS: HYDROmorphone 1 mg/ml syringe IV PRN (14:02)
[2019-02-03] MEDS: mag hydrox/Alum hydrox/simeth 30ml oral suspension PO PRN (14:10)
[2019-02-03] MEDS: normal saline 1000ml 1,000 ML IV SCH (17:03)
--- NOTE | 2019-02-03 18:25 | NUR ---
Problems reprioritized. Patient report given, questions answered & plan of care reviewed with Alexandra ALBERTO.
--- NOTE | 2019-02-03 18:30 | NUR ---
Patient in room JAYJAY 360. I have received report from MARY ALBERTO and had the opportunity to ask questions and assume patient care.
[2019-02-04] VITALS: BP 137/78
[2019-02-04] MEDS: piperacillin/tazo 3.375gm/50ml 50 ML IV SCH ×3 (00:09→15:48)
[2019-02-04] MEDS: normal saline 1000ml 1,000 ML IV SCH (00:16)
[2019-02-04] MEDS: HYDROmorphone/NS 1 mg/ml CADD 50 ML IV SCH ×12 (01:00→23:00)
--- NOTE | 2019-02-04 06:35 | NUR ---
Problems reprioritized. Patient report given, questions answered & plan of care reviewed with TRISTAN ALBERTO.
[2019-02-04] MEDS: K and/or MAG REPLACEMENT MC SCH (06:58)
[2019-02-04 07:00] VITALS: BP 149/74
[2019-02-04] MEDS: lactobacillus rhamnosus 10,000 MMU CELLS/CAPSULE PO SCH ×2 (07:17→19:55)
[2019-02-04] MEDS: LIDOCAINE 5% OINTMENT 35GM TP SCH ×2 (07:23→19:57)
[2019-02-04] MEDS: docusate sod 100mg capsule PO SCH (07:23)
[2019-02-04] MEDS: sennosides/docusate sodium tablet PO SCH ×2 (07:23→19:56)
[2019-02-04 08:57] LABS: BASOPHILS # (AUTO) 0.1 X10'3 (0-0.2); BASOPHILS % (AUTO) 0.8 % (0-1); EOSINOPHILS # (AUTO) 0.2 X10'3 (0-0.9); EOSINOPHILS % (AUTO) 2.5 % (0-6); HEMATOCRIT 30.3 % (35.0-45.0); HEMOGLOBIN 10.4 g/dl (12.0-16.0); LYMPHOCYTES # (AUTO) 1.7 X10'3 (1.1-4.8); LYMPHOCYTES % (AUTO) 21.3 % (21-51); MEAN CORPUSCULAR HEMOGLOBIN 31.8 PG (27.0-31.0); MEAN CORPUSCULAR HGB CONC 34.2 g/dL (33.0-36.5); MEAN CORPUSCULAR VOLUME 92.9 FL (78-98); MONOCYTES # (AUTO) 0.6 X10'3 (0-0.9); MONOCYTES % (AUTO) 7.7 % (2-12); NEUTROPHILS # (AUTO) 5.3 X10'3 (1.8-7.7); NEUTROPHILS % (AUTO) 67.7 % (42-75); PLATELET COUNT 618 X10'3 (140-440); RED BLOOD COUNT 3.26 X10'6 (4.20-5.60); RED CELL DISTRIBUTION WIDTH 13.2 % (11.5-14.5); WHITE BLOOD COUNT 7.7 X10'3 (4.5-11.0)
[2019-02-04 09:57] LABS: ALANINE AMINOTRANSFERASE 102 U/L (12-78); ALBUMIN 2.6 G/DL (3.4-5.0); ALBUMIN/GLOBULIN RATIO 0.6 (1.1-1.5); ALKALINE PHOSPHATASE 79 IU/L (46-116); ANION GAP 8 (8-16); ASPARTATE AMINO TRANSFERASE 60 U/L (10-37); BILIRUBIN,TOTAL 0.3 MG/DL (0.1-1.0); BLOOD UREA NITROGEN 19 MG/DL (7-18); CALCIUM 8.5 MG/DL (8.5-10.1); CHLORIDE 105 MMOL/L (99-107); CREATININE 0.95 MG/DL (0.40-0.90); GLUCOSE 99 MG/DL (70-104); POTASSIUM 3.9 MMOL/L (3.5-5.1); SODIUM 141 MMOL/L (135-145); TOTAL CARBON DIOXIDE 28.4 MMOL/L (24-32); TOTAL PROTEIN 6.9 G/DL (6.4-8.2); eGFR 61 ML/MIN
[2019-02-04 10:18] LABS: ELLIPTOCYTES FEW; PLATELET ESTIMATE INCREASED; POLYCHROMASIA 2+
[2019-02-04] MEDS: mag hydrox/Alum hydrox/simeth 30ml oral suspension PO PRN (11:33)
[2019-02-04] MEDS: HYDROmorphone 1 mg/ml syringe IV PRN (14:11)
[2019-02-04 15:34] VITALS: BP 125/84
--- NOTE | 2019-02-04 18:23 | NUR ---
Problems reprioritized. Patient report given, questions answered & plan of care reviewed with RENUKA GRAYSON RN.
--- NOTE | 2019-02-04 18:30 | NUR ---
Patient in room JAYJAY 360. I have received report from TRISTAN ALBERTO and had the opportunity to ask questions and assume patient care.
[2019-02-04 20:00] VITALS: BP 142/94
[2019-02-05] VITALS: BP 119/75
[2019-02-05] MEDS: HYDROmorphone/NS 1 mg/ml CADD 50 ML IV SCH ×12 (01:00→23:00)
[2019-02-05 06:20] LABS: BASOPHILS # (AUTO) 0.1 X10'3 (0-0.2); BASOPHILS % (AUTO) 0.6 % (0-1); EOSINOPHILS # (AUTO) 0.3 X10'3 (0-0.9); EOSINOPHILS % (AUTO) 3.3 % (0-6); HEMATOCRIT 28.6 % (35.0-45.0); HEMOGLOBIN 9.8 g/dl (12.0-16.0); LYMPHOCYTES # (AUTO) 1.7 X10'3 (1.1-4.8); LYMPHOCYTES % (AUTO) 20.9 % (21-51); MEAN CORPUSCULAR HEMOGLOBIN 31.9 PG (27.0-31.0); MEAN CORPUSCULAR HGB CONC 34.5 g/dL (33.0-36.5); MEAN CORPUSCULAR VOLUME 92.4 FL (78-98); MEAN PLATELET VOLUME 6.1 FL (7.4-10.4); MONOCYTES # (AUTO) 0.8 X10'3 (0-0.9); MONOCYTES % (AUTO) 9.6 % (2-12); NEUTROPHILS # (AUTO) 5.3 X10'3 (1.8-7.7); NEUTROPHILS % (AUTO) 65.6 % (42-75); PLATELET COUNT 594 X10'3 (140-440); RED BLOOD COUNT 3.09 X10'6 (4.20-5.60); RED CELL DISTRIBUTION WIDTH 13.2 % (11.5-14.5); WHITE BLOOD COUNT 8.1 X10'3 (4.5-11.0)
--- NOTE | 2019-02-05 06:20 | NUR ---
Problems reprioritized. Patient report given, questions answered & plan of care reviewed with TRISTAN ALBERTO.
--- NOTE | 2019-02-05 06:21 | NUR ---
Patient in room JAYJAY 360. I have received report from lurdes chatman rn and had the opportunity to ask questions and assume patient care.
[2019-02-05 06:35] LABS: ALANINE AMINOTRANSFERASE 79 U/L (12-78); ALBUMIN 2.6 G/DL (3.4-5.0); ALBUMIN/GLOBULIN RATIO 0.6 (1.1-1.5); ALKALINE PHOSPHATASE 84 IU/L (46-116); ANION GAP 9 (8-16); ASPARTATE AMINO TRANSFERASE 36 U/L (10-37); BILIRUBIN,TOTAL 0.3 MG/DL (0.1-1.0); BLOOD UREA NITROGEN 25 MG/DL (7-18); CALCIUM 8.8 MG/DL (8.5-10.1); CHLORIDE 103 MMOL/L (99-107); CREATININE 0.96 MG/DL (0.40-0.90); GLUCOSE 104 MG/DL (70-104); SODIUM 140 MMOL/L (135-145); TOTAL CARBON DIOXIDE 27.9 MMOL/L (24-32); TOTAL PROTEIN 6.7 G/DL (6.4-8.2); eGFR 61 ML/MIN
[2019-02-05] MEDS: LIDOCAINE 5% OINTMENT 35GM TP SCH ×2 (06:50→19:45)
[2019-02-05] MEDS: K and/or MAG REPLACEMENT MC SCH (06:50)
[2019-02-05] MEDS: sennosides/docusate sodium tablet PO SCH ×2 (06:50→19:44)
[2019-02-05] MEDS: docusate sod 100mg capsule PO SCH (06:50)
[2019-02-05 06:59] VITALS: BP 144/84
[2019-02-05] MEDS: lactobacillus rhamnosus 10,000 MMU CELLS/CAPSULE PO SCH ×2 (07:19→19:40)
[2019-02-05] MEDS: piperacillin/tazo 3.375gm/50ml 50 ML IV SCH ×3 (07:19→17:36)
[2019-02-05 08:55] LABS: PLATELET ESTIMATE NORMAL; TOTAL CELLS COUNTED 100
[2019-02-05 08:56] LABS: ELLIPTOCYTES FEW; POLYCHROMASIA FEW; SCHISTOCYTES FEW
[2019-02-05 12:10] VITALS: BP 135/79
[2019-02-05] MEDS: HYDROmorphone 1 mg/ml syringe IV PRN (12:31)
--- NOTE | 2019-02-05 13:11 | NUR ---
WOUND CARE DONE PER MD ORDER
[2019-02-05] MEDS: normal saline 1000ml 1,000 ML IV SCH (16:55)
--- NOTE | 2019-02-05 18:06 | NUR ---
Problems reprioritized. Patient report given, questions answered & plan of care reviewed with prudence rn.
--- NOTE | 2019-02-05 18:42 | NUR ---
Patient in room JAYJAY 360. I have received report from Kaila ALBERTO and had the opportunity to ask questions and assume patient care. Patient is walking in the hallway with family member.
[2019-02-05 19:00] VITALS: BP 126/82
[2019-02-05] MEDS: heparin, porcine 5000 units/ml vial SQ SCH (19:40)
[2019-02-05 23:30] VITALS: BP 139/88
[2019-02-06] MEDS: piperacillin/tazo 3.375gm/50ml 50 ML IV SCH ×3 (00:29→15:25)
[2019-02-06] MEDS: mag hydrox/Alum hydrox/simeth 30ml oral suspension PO PRN ×2 (00:36→23:27)
[2019-02-06] MEDS: normal saline 1000ml 1,000 ML IV SCH (00:37)
--- NOTE | 2019-02-06 00:47 | NUR ---
measurements 60 cm Addendum: 02/06/19 at 0049 by Thais Vincent RN Amended: Links added.
[2019-02-06] MEDS: HYDROmorphone/NS 1 mg/ml CADD 50 ML IV SCH ×12 (01:00→23:00)
[2019-02-06 06:00] LABS: ALANINE AMINOTRANSFERASE 63 U/L (12-78); ALBUMIN 2.7 G/DL (3.4-5.0); ALBUMIN/GLOBULIN RATIO 0.7 (1.1-1.5); ALKALINE PHOSPHATASE 81 IU/L (46-116); ANION GAP 6 (8-16); ASPARTATE AMINO TRANSFERASE 21 U/L (10-37); BILIRUBIN,TOTAL 0.3 MG/DL (0.1-1.0); BLOOD UREA NITROGEN 23 MG/DL (7-18); CALCIUM 9.2 MG/DL (8.5-10.1); CHLORIDE 105 MMOL/L (99-107); CREATININE 0.96 MG/DL (0.40-0.90); GLUCOSE 95 MG/DL (70-104); POTASSIUM 4.1 MMOL/L (3.5-5.1); SODIUM 141 MMOL/L (135-145); TOTAL CARBON DIOXIDE 29.8 MMOL/L (24-32); TOTAL PROTEIN 6.7 G/DL (6.4-8.2); eGFR 61 ML/MIN
[2019-02-06 06:01] LABS: BASOPHILS # (AUTO) 0.1 X10'3 (0-0.2); EOSINOPHILS # (AUTO) 0.3 X10'3 (0-0.9); HEMOGLOBIN 10.3 g/dl (12.0-16.0); LYMPHOCYTES # (AUTO) 1.6 X10'3 (1.1-4.8); LYMPHOCYTES % (AUTO) 19.9 % (21-51); NEUTROPHILS # (AUTO) 5.4 X10'3 (1.8-7.7); WHITE BLOOD COUNT 8.2 X10'3 (4.5-11.0)
[2019-02-06 06:02] LABS: BASOPHILS % (AUTO) 0.6 % (0-1); EOSINOPHILS % (AUTO) 3.4 % (0-6); HEMATOCRIT 30.5 % (35.0-45.0); MEAN CORPUSCULAR HEMOGLOBIN 31.2 PG (27.0-31.0); MEAN CORPUSCULAR HGB CONC 33.9 g/dL (33.0-36.5); MEAN CORPUSCULAR VOLUME 92.2 FL (78-98); MEAN PLATELET VOLUME 6.3 FL (7.4-10.4); MONOCYTES # (AUTO) 0.9 X10'3 (0-0.9); MONOCYTES % (AUTO) 10.5 % (2-12); NEUTROPHILS % (AUTO) 65.6 % (42-75); PLATELET COUNT 607 X10'3 (140-440); RED CELL DISTRIBUTION WIDTH 13.3 % (11.5-14.5)
[2019-02-06 06:19] LABS: PLATELET ESTIMATE DECREASED; TOTAL CELLS COUNTED 100
[2019-02-06 06:20] LABS: ANISOCYTOSIS 3+
[2019-02-06 06:23] LABS: BURR CELLS FEW; HYPOCHROMASIA 1+; POLYCHROMASIA FEW; SCHISTOCYTES FEW
[2019-02-06 06:24] LABS: ELLIPTOCYTES FEW
--- NOTE | 2019-02-06 06:55 | NUR ---
Problems reprioritized. Patient report given, questions answered & plan of care reviewed with Tram ALBERTO.
[2019-02-06] MEDS: lactobacillus rhamnosus 10,000 MMU CELLS/CAPSULE PO SCH ×2 (07:58→19:17)
[2019-02-06] MEDS: heparin, porcine 5000 units/ml vial SQ SCH ×2 (07:58→19:19)
[2019-02-06] MEDS: K and/or MAG REPLACEMENT MC SCH (07:59)
[2019-02-06] MEDS: sennosides/docusate sodium tablet PO SCH ×2 (07:59→19:21)
[2019-02-06] MEDS: docusate sod 100mg capsule PO SCH (07:59)
[2019-02-06] MEDS: LIDOCAINE 5% OINTMENT 35GM TP SCH ×2 (08:00→19:21)
[2019-02-06 08:10] VITALS: BP 124/75
[2019-02-06 12:00] VITALS: BP 143/88
--- NOTE | 2019-02-06 15:00 | NUR ---
THIGH GIRTH MEASURED- 58.5 CM AT 1500. Addendum: 02/06/19 at 2 by Tram Davis RN Amended: Links added.
[2019-02-06] MEDS: HYDROmorphone 1 mg/ml syringe IV PRN (15:25)
--- NOTE | 2019-02-06 18:56 | NUR ---
Patient in room JAYJAY 345. I have received report from Tram ALBERTO and had the opportunity to ask questions and assume patient care. Pt currently sitting up in bed getting a new IV from the resource nurse. No sisng of distress, will continue to monitor.
--- NOTE | 2019-02-06 19:12 | NUR ---
GAVE REPORT TO JAMES ALBERTO. Addendum: 02/06/19 at 1913 by Tram Davis RN KRISTEN ALBERTO
[2019-02-06 20:00] VITALS: BP 127/78
[2019-02-07] VITALS: BP 128/73
[2019-02-07] MEDS: piperacillin/tazo 3.375gm/50ml 50 ML IV SCH ×3 (00:35→17:09)
[2019-02-07] MEDS: HYDROmorphone/NS 1 mg/ml CADD 50 ML IV SCH ×6 (01:00→11:00)
--- NOTE | 2019-02-07 06:16 | NUR ---
Problems reprioritized. Patient report given, questions answered & plan of care reviewed with Tram ALBERTO.
[2019-02-07 06:25] LABS: ANION GAP 6 (8-16); BLOOD UREA NITROGEN 18 MG/DL (7-18); BUN/CREATININE RATIO 20.9 (6.6-38.0); CHLORIDE 104 MMOL/L (99-107); CREATININE 0.86 MG/DL (0.40-0.90); GLUCOSE 105 MG/DL (70-104); POTASSIUM 3.9 MMOL/L (3.5-5.1); SODIUM 139 MMOL/L (135-145); TOTAL CARBON DIOXIDE 29.2 MMOL/L (24-32)
[2019-02-07 06:26] LABS: ALANINE AMINOTRANSFERASE 51 U/L (12-78); ALBUMIN 2.7 G/DL (3.4-5.0); ALBUMIN/GLOBULIN RATIO 0.7 (1.1-1.5); ALKALINE PHOSPHATASE 85 IU/L (46-116); ASPARTATE AMINO TRANSFERASE 20 U/L (10-37); BILIRUBIN,TOTAL 0.2 MG/DL (0.1-1.0); CALCIUM 8.6 MG/DL (8.5-10.1); TOTAL PROTEIN 6.8 G/DL (6.4-8.2); eGFR 69 ML/MIN
[2019-02-07 06:29] LABS: BASOPHILS % (AUTO) 0.6 % (0-1); EOSINOPHILS # (AUTO) 0.2 X10'3 (0-0.9); EOSINOPHILS % (AUTO) 3.1 % (0-6); HEMATOCRIT 30.4 % (35.0-45.0); HEMOGLOBIN 10.6 g/dl (12.0-16.0); LYMPHOCYTES # (AUTO) 1.5 X10'3 (1.1-4.8); MEAN CORPUSCULAR HEMOGLOBIN 32.1 PG (27.0-31.0); MEAN CORPUSCULAR HGB CONC 34.7 g/dL (33.0-36.5); MEAN CORPUSCULAR VOLUME 92.5 FL (78-98); MEAN PLATELET VOLUME 6.2 FL (7.4-10.4); MONOCYTES # (AUTO) 0.7 X10'3 (0-0.9); MONOCYTES % (AUTO) 9.4 % (2-12); NEUTROPHILS % (AUTO) 66.9 % (42-75); PLATELET COUNT 567 X10'3 (140-440); RED BLOOD COUNT 3.29 X10'6 (4.20-5.60); RED CELL DISTRIBUTION WIDTH 13.4 % (11.5-14.5); WHITE BLOOD COUNT 7.5 X10'3 (4.5-11.0)
[2019-02-07 08:00] VITALS: BP 136/87
[2019-02-07] MEDS: K and/or MAG REPLACEMENT MC SCH (08:00)
[2019-02-07] MEDS: LIDOCAINE 5% OINTMENT 35GM TP SCH ×2 (08:00→20:00)
[2019-02-07] MEDS: lactobacillus rhamnosus 10,000 MMU CELLS/CAPSULE PO SCH ×2 (08:12→20:35)
[2019-02-07] MEDS: sennosides/docusate sodium tablet PO SCH ×2 (08:12→20:00)
[2019-02-07] MEDS: heparin, porcine 5000 units/ml vial SQ SCH ×2 (08:12→20:36)
[2019-02-07] MEDS: docusate sod 100mg capsule PO SCH (08:13)
--- NOTE | 2019-02-07 11:38 | NUR ---
Received orders from Dr Moffett to place wound vac at settings of 125mmHg low continuous. Spoke to Abbi with wound care they are aware to place wound vac today due to patient has been accepted at [facility] tomorrow. Moe community outreach advocate is ordering a wound vac.
[2019-02-07] MEDS ORDERED: mineral oil/petrolatum, white cream 113gm jar TP PRN (11:45)
[2019-02-07 12:04] VITALS: BP 122/84
[2019-02-07] MEDS: HYDROcodone/acetaminophen 10/325mg tab PO PRN ×2 (13:04→17:09)
[2019-02-07] MEDS ORDERED: CADD PCA waste documentation MC SCH (13:25)
[2019-02-07] MEDS: HYDROmorphone inj. 0.5 MG/0.5 ML DISP.SYRIN IV PRN ×2 (14:02→19:05)
--- NOTE | 2019-02-07 14:14 | NUR ---
Called MD Moffett in regards to pt. wanting to take a shower before wound vac is placed. Zuhair said ok for pt. to take a shower.
[2019-02-07] MEDS: HYDROmorphone 1 mg/ml syringe IV PRN (15:15)
--- NOTE | 2019-02-07 18:30 | NUR ---
Patient in room JAYJAY 345. I have received report from EDWARD and had the opportunity to ask questions and assume patient care.
--- NOTE | 2019-02-07 18:38 | NUR ---
Gave report to Cassie ALBERTO.
--- NOTE | 2019-02-07 18:48 | NUR ---
Thigh girth 58.0 cm Addendum: 02/07/19 at 1850 by Tram Davis RN Amended: Links added.
[2019-02-07 19:00] VITALS: BP 129/77
[2019-02-07 23:00] VITALS: BP 144/93
[2019-02-08] MEDS: piperacillin/tazo 3.375gm/50ml 50 ML IV SCH ×3 (00:11→16:44)
[2019-02-08] MEDS: mag hydrox/Alum hydrox/simeth 30ml oral suspension PO PRN ×2 (01:44→23:27)
--- NOTE | 2019-02-08 06:36 | NUR ---
Problems reprioritized. Patient report given, questions answered & plan of care reviewed with EMMANUEL.
--- NOTE | 2019-02-08 06:36 | NUR ---
Patient in room JAYJAY 345. I have received report from DOLLY Matthews and had the opportunity to ask questions and assume patient care.
[2019-02-08] MEDS: lactobacillus rhamnosus 10,000 MMU CELLS/CAPSULE PO SCH ×2 (07:40→19:46)
[2019-02-08] MEDS: docusate sod 100mg capsule PO SCH (07:41)
[2019-02-08] MEDS: sennosides/docusate sodium tablet PO SCH ×2 (07:41→19:51)
[2019-02-08] MEDS: heparin, porcine 5000 units/ml vial SQ SCH ×2 (07:41→19:47)
[2019-02-08] MEDS: LIDOCAINE 5% OINTMENT 35GM TP SCH ×2 (07:43→20:00)
[2019-02-08] MEDS: HYDROcodone/acetaminophen 10/325mg tab PO PRN ×3 (07:43→21:41)
[2019-02-08 08:00] VITALS: BP 137/89
[2019-02-08] MEDS: K and/or MAG REPLACEMENT MC SCH (08:00)
--- NOTE | 2019-02-08 10:42 | NUR ---
Reassessment: Pt with wound VAC placed to left leg today. Pt continues on regular diet documented with 75-100% PO intake meeting nutrient needs with adequate protein for wound healing/skin integrity. MARK 02/07. Will continue to follow. Rec: 1. continue regular diet 2. bowel care as needed 3. wt per rx Addendum: 02/08/19 at [address] Amended: Links added.
[2019-02-08 12:00] VITALS: BP 121/83
--- NOTE | 2019-02-08 18:08 | NUR ---
Problems reprioritized. Patient report given, questions answered & plan of care reviewed with DOLLY Yoo.
--- NOTE | 2019-02-08 18:35 | NUR ---
Patient in room JAYJAY 345. I have received report from Baylee ALBERTO and had the opportunity to ask questions and assume patient care.
[2019-02-08 20:00] VITALS: BP 113/78
[2019-02-08 23:48] VITALS: BP 141/95
[2019-02-09] MEDS: HYDROmorphone inj. 0.5 MG/0.5 ML DISP.SYRIN IV PRN (00:29)
[2019-02-09] MEDS: piperacillin/tazo 3.375gm/50ml 50 ML IV SCH ×3 (00:30→16:48)
--- NOTE | 2019-02-09 06:35 | NUR ---
Patient in room JAYJAY 345. I have received report from DOLLY Yoo and had the opportunity to ask questions and assume patient care.
--- NOTE | 2019-02-09 06:35 | NUR ---
Problems reprioritized. Patient report given, questions answered & plan of care reviewed with Baylee RN.
[2019-02-09 08:00] VITALS: BP 127/82
[2019-02-09] MEDS: LIDOCAINE 5% OINTMENT 35GM TP SCH ×2 (08:00→20:00)
[2019-02-09] MEDS: sennosides/docusate sodium tablet PO SCH ×2 (08:00→19:53)
[2019-02-09] MEDS: K and/or MAG REPLACEMENT MC SCH (08:00)
[2019-02-09] MEDS: docusate sod 100mg capsule PO SCH (08:00)
[2019-02-09] MEDS ORDERED: FLU VACC QS2019-20 36MOS UP/PF 60 MCG/0.5 ML SYRINGE IMVAC ONE (08:00)
[2019-02-09] MEDS: HYDROmorphone 1 mg/ml syringe IV PRN (08:07)
[2019-02-09] MEDS: lactobacillus rhamnosus 10,000 MMU CELLS/CAPSULE PO SCH ×2 (08:08→19:50)
[2019-02-09] MEDS: heparin, porcine 5000 units/ml vial SQ SCH ×2 (08:13→19:53)
--- NOTE | 2019-02-09 10:00 | NUR ---
Patient refused flu vaccination for this season. states "no flu shot."
[2019-02-09] MEDS: mag hydrox/Alum hydrox/simeth 30ml oral suspension PO PRN (10:46)
[2019-02-09 12:00] VITALS: BP 133/78
[2019-02-09] MEDS: HYDROcodone/acetaminophen 10/325mg tab PO PRN (16:59)
--- NOTE | 2019-02-09 19:00 | NUR ---
Problems reprioritized. Patient report given, questions answered & plan of care reviewed with DOLLY Yoo.
[2019-02-09 19:14] VITALS: BP 108/84
--- NOTE | 2019-02-09 19:16 | NUR ---
Patient in room JAYJAY 345. I have received report from Baylee ALBERTO and had the opportunity to ask questions and assume patient care.
--- NOTE | 2019-02-09 22:08 | NUR ---
Pt had been sleeping when she awoke suddenly in tears. When I asked what had upset her so, she stated " I don't know, I just woke up this way." I stayed with pt until she stopped crying and asked if there was anything I could get her. She stated "that she was feeling better and that she doesn't know why this keeps happening." Pt showed no physical signs of distress, will continue to monitor.
[2019-02-10] VITALS: BP 144/90
[2019-02-10] MEDS: piperacillin/tazo 3.375gm/50ml 50 ML IV SCH ×3 (01:11→16:43)
[2019-02-10] MEDS: HYDROcodone/acetaminophen 10/325mg tab PO PRN ×4 (01:11→19:53)
--- NOTE | 2019-02-10 06:15 | NUR ---
Patient in room JAYJAY 345. I have received report from DOLLY Yoo and had the opportunity to ask questions and assume patient care.
[2019-02-10 06:30] VITALS: BP 142/83
--- NOTE | 2019-02-10 06:48 | NUR ---
Problems reprioritized. Patient report given, questions answered & plan of care reviewed with Naima RN.
[2019-02-10] MEDS: K and/or MAG REPLACEMENT MC SCH (07:23)
[2019-02-10] MEDS: LIDOCAINE 5% OINTMENT 35GM TP SCH (07:24)
[2019-02-10] MEDS: lactobacillus rhamnosus 10,000 MMU CELLS/CAPSULE PO SCH ×2 (07:54→19:50)
[2019-02-10] MEDS: docusate sod 100mg capsule PO SCH (07:55)
[2019-02-10] MEDS: sennosides/docusate sodium tablet PO SCH ×2 (07:55→19:54)
[2019-02-10] MEDS: heparin, porcine 5000 units/ml vial SQ SCH ×2 (07:56→19:50)
[2019-02-10 11:00] VITALS: BP 142/81
--- NOTE | 2019-02-10 18:05 | NUR ---
Patient in room JAYJAY 345. I have received report from Naima ALBERTO and had the opportunity to ask questions and assume patient care.
--- NOTE | 2019-02-10 18:15 | NUR ---
Problems reprioritized. Patient report given, questions answered & plan of care reviewed with DOLLY Cook.
[2019-02-10 20:00] VITALS: BP 164/107
[2019-02-11] VITALS: BP 145/82
[2019-02-11] MEDS ORDERED: HYDROmorphone 1 mg/ml syringe ONE (00:16)
[2019-02-11] MEDS: piperacillin/tazo 3.375gm/50ml 50 ML IV SCH ×3 (00:19→17:28)
[2019-02-11] MEDS: HYDROmorphone inj. 0.5 MG/0.5 ML DISP.SYRIN IV PRN (00:23)
[2019-02-11] MEDS: HYDROcodone/acetaminophen 10/325mg tab PO PRN ×2 (05:03→18:32)
[2019-02-11 05:19] LABS: BASOPHILS # (AUTO) 0.1 X10'3 (0-0.2); EOSINOPHILS # (AUTO) 0.2 X10'3 (0-0.9); HEMATOCRIT 33.9 % (35.0-45.0); HEMOGLOBIN 11.7 g/dl (12.0-16.0); LYMPHOCYTES # (AUTO) 1.8 X10'3 (1.1-4.8); LYMPHOCYTES % (AUTO) 26.9 % (21-51); MEAN CORPUSCULAR HEMOGLOBIN 31.9 PG (27.0-31.0); MEAN CORPUSCULAR HGB CONC 34.4 g/dL (33.0-36.5); MEAN CORPUSCULAR VOLUME 92.8 FL (78-98); MEAN PLATELET VOLUME 6.7 FL (7.4-10.4); MONOCYTES # (AUTO) 0.6 X10'3 (0-0.9); MONOCYTES % (AUTO) 8.9 % (2-12); NEUTROPHILS % (AUTO) 60.2 % (42-75); PLATELET COUNT 545 X10'3 (140-440); RED BLOOD COUNT 3.65 X10'6 (4.20-5.60); RED CELL DISTRIBUTION WIDTH 14.4 % (11.5-14.5); WHITE BLOOD COUNT 6.6 X10'3 (4.5-11.0)
--- NOTE | 2019-02-11 06:28 | NUR ---
Patient in room JAYJAY 345. I have received report from Joey ALBERTO and had the opportunity to ask questions and assume patient care.
--- NOTE | 2019-02-11 06:30 | NUR ---
Problems reprioritized. Patient report given, questions answered & plan of care reviewed with Emely ALBERTO.
[2019-02-11 07:00] VITALS: BP 158/102
[2019-02-11] MEDS: docusate sod 100mg capsule PO SCH (08:00)
[2019-02-11] MEDS: sennosides/docusate sodium tablet PO SCH ×2 (08:00→19:33)
[2019-02-11] MEDS: K and/or MAG REPLACEMENT MC SCH (08:00)
[2019-02-11] MEDS: lactobacillus rhamnosus 10,000 MMU CELLS/CAPSULE PO SCH ×2 (09:03→19:27)
[2019-02-11] MEDS: HYDROmorphone 1 mg/ml syringe IV PRN ×2 (09:03→14:48)
[2019-02-11] MEDS: heparin, porcine 5000 units/ml vial SQ SCH ×2 (09:04→19:27)
--- NOTE | 2019-02-11 09:49 | NUR ---
Wound care nurse currently at bedside doing wound vac care on patient's left knee Addendum: 02/11/19 at 0951 by Emely Allison RN Patient was premedicated with Dilaudid 1mg IV prior to wound care
[2019-02-11 11:00] VITALS: BP 141/87
--- NOTE | 2019-02-11 11:24 | NUR ---
WOUND VAC EDUCATION PROVIDED BY WOUND CARE 1. Patient instructed to call the Wound Center or their Home Health Agency immediately if: * They notice a change in the color or amount of the fluid in the canister. * Their wound looks more red than usual or has a foul smell. * The skin around their wound looks reddened or irritated. * The dressing feels loose or appears to be loose. * They experience any increase or changes in their pain. * The alarm will not turn off. 2. Patient instructed that they should not be disconnected from suction for more than 2 hours at a time. * If they are not able to get the suction back on, they need to remove the dressing and take all of the foam out of the wound. * Then moisten sterile gauze with normal saline and place on/in the wound. * Change the dressing once a day until arrangements have been made to replace the wound vac dressing. 3. Patient instructed to turn the wound vac machine OFF and call 911 or go to the ED immediately if their canister fills rapidly with blood. 4. If any of these occur while in the hospital tell a nurse immediately. WOUND INFECTION EDUCATION PROVIDED BY WOUND CARE 1. Patient instructed to call their primary doctor, or go the ED immediately if any of the following symptoms occur: * Increased pain in wound * Increase in drainage from the wound * Redness in the skin surrounding the wound * Warmth in the skin surrounding the wound * Bleeding from the wound * Temperature of 101 or greater 2. If any of these occur while in the hospital tell a nurse immediately. Addendum: 02/11/19 at 1124 by Gt Morin RN Amended: Links added.
--- NOTE | 2019-02-11 18:05 | NUR ---
Patient in room JAYJAY 345. I have received report from Emely ALBERTO and had the opportunity to ask questions and assume patient care.
--- NOTE | 2019-02-11 18:27 | NUR ---
Problems reprioritized. Patient report given, questions answered & plan of care reviewed with Joey ALBERTO.
[2019-02-11 20:00] VITALS: BP 149/88
[2019-02-12] VITALS: BP 150/78
[2019-02-12] MEDS: piperacillin/tazo 3.375gm/50ml 50 ML IV SCH ×3 (00:14→15:44)
[2019-02-12] MEDS: HYDROmorphone 1 mg/ml syringe IV PRN (03:39)
[2019-02-12 06:01] LABS: BASOPHILS # (AUTO) 0.1 X10'3 (0-0.2); BASOPHILS % (AUTO) 0.8 % (0-1); EOSINOPHILS # (AUTO) 0.2 X10'3 (0-0.9); EOSINOPHILS % (AUTO) 1.9 % (0-6); HEMATOCRIT 35.2 % (35.0-45.0); HEMOGLOBIN 12.1 g/dl (12.0-16.0); LYMPHOCYTES # (AUTO) 1.7 X10'3 (1.1-4.8); LYMPHOCYTES % (AUTO) 21.6 % (21-51); MEAN CORPUSCULAR HGB CONC 34.5 g/dL (33.0-36.5); MEAN CORPUSCULAR VOLUME 92.8 FL (78-98); MEAN PLATELET VOLUME 6.8 FL (7.4-10.4); MONOCYTES # (AUTO) 0.8 X10'3 (0-0.9); MONOCYTES % (AUTO) 9.6 % (2-12); NEUTROPHILS # (AUTO) 5.3 X10'3 (1.8-7.7); NEUTROPHILS % (AUTO) 66.1 % (42-75); PLATELET COUNT 531 X10'3 (140-440); RED BLOOD COUNT 3.79 X10'6 (4.20-5.60); RED CELL DISTRIBUTION WIDTH 14.7 % (11.5-14.5)
--- NOTE | 2019-02-12 06:32 | NUR ---
Problems reprioritized. Patient report given, questions answered & plan of care reviewed with Sandy ALBERTO.
[2019-02-12 07:00] VITALS: BP 141/81
--- NOTE | 2019-02-12 07:05 | NUR ---
Patient in room JAYJAY 345. I have received report from Joey ALBERTO and had the opportunity to ask questions and assume patient care.
[2019-02-12] MEDS: lactobacillus rhamnosus 10,000 MMU CELLS/CAPSULE PO SCH ×2 (07:20→19:40)
[2019-02-12] MEDS: HYDROcodone/acetaminophen 10/325mg tab PO PRN ×3 (07:20→18:36)
[2019-02-12] MEDS: heparin, porcine 5000 units/ml vial SQ SCH ×2 (07:21→19:41)
[2019-02-12] MEDS: docusate sod 100mg capsule PO SCH (07:21)
[2019-02-12] MEDS: sennosides/docusate sodium tablet PO SCH ×2 (07:21→19:44)
[2019-02-12] MEDS: K and/or MAG REPLACEMENT MC SCH (07:21)
[2019-02-12 12:00] VITALS: BP 129/91
--- NOTE | 2019-02-12 18:19 | NUR ---
Problems reprioritized. Patient report given, questions answered & plan of care reviewed with Joey ALBERTO.
--- NOTE | 2019-02-12 18:27 | NUR ---
Patient in room JAYJAY 345. I have received report from Sandy ALBERTO and had the opportunity to ask questions and assume patient care.
[2019-02-12 20:00] VITALS: BP 117/79
[2019-02-13] VITALS: BP 126/86
[2019-02-13] MEDS: piperacillin/tazo 3.375gm/50ml 50 ML IV SCH ×4 (01:39→23:48)
[2019-02-13] MEDS: HYDROcodone/acetaminophen 10/325mg tab PO PRN ×2 (02:06→07:29)
[2019-02-13 05:28] LABS: BASOPHILS # (AUTO) 0.1 X10'3 (0-0.2); BASOPHILS % (AUTO) 0.9 % (0-1); EOSINOPHILS # (AUTO) 0.2 X10'3 (0-0.9); EOSINOPHILS % (AUTO) 2.4 % (0-6); HEMATOCRIT 33.6 % (35.0-45.0); HEMOGLOBIN 11.6 g/dl (12.0-16.0); LYMPHOCYTES # (AUTO) 1.5 X10'3 (1.1-4.8); LYMPHOCYTES % (AUTO) 22.4 % (21-51); MEAN CORPUSCULAR HEMOGLOBIN 31.7 PG (27.0-31.0); MEAN CORPUSCULAR HGB CONC 34.5 g/dL (33.0-36.5); MEAN CORPUSCULAR VOLUME 91.9 FL (78-98); MEAN PLATELET VOLUME 6.7 FL (7.4-10.4); MONOCYTES # (AUTO) 0.8 X10'3 (0-0.9); MONOCYTES % (AUTO) 11.3 % (2-12); NEUTROPHILS # (AUTO) 4.3 X10'3 (1.8-7.7); PLATELET COUNT 486 X10'3 (140-440); RED BLOOD COUNT 3.66 X10'6 (4.20-5.60); RED CELL DISTRIBUTION WIDTH 14.6 % (11.5-14.5); WHITE BLOOD COUNT 6.9 X10'3 (4.5-11.0)
[2019-02-13 05:43] LABS: ANION GAP 9 (8-16); BLOOD UREA NITROGEN 20 MG/DL (7-18); BUN/CREATININE RATIO 20.8 (6.6-38.0); CHLORIDE 104 MMOL/L (99-107); CREATININE 0.96 MG/DL (0.40-0.90); GLUCOSE 103 MG/DL (70-104); POTASSIUM 4.2 MMOL/L (3.5-5.1); SODIUM 141 MMOL/L (135-145); TOTAL CARBON DIOXIDE 28.3 MMOL/L (24-32); eGFR 61 ML/MIN
--- NOTE | 2019-02-13 06:29 | NUR ---
Problems reprioritized. Patient report given, questions answered & plan of care reviewed with Sandy ALBERTO.
[2019-02-13 07:00] VITALS: BP 130/75
--- NOTE | 2019-02-13 07:19 | NUR ---
Spoke to Heide the pharmacist regarding noc shift Zosyn was hung at 0139 and just finished at 0600, Patient is due again at 0800, per Pharmacist hang Zosyn at 1000 then next dose as usual.
[2019-02-13] MEDS: lactobacillus rhamnosus 10,000 MMU CELLS/CAPSULE PO SCH ×2 (07:29→20:24)
[2019-02-13] MEDS: heparin, porcine 5000 units/ml vial SQ SCH ×2 (07:30→20:24)
[2019-02-13] MEDS: sennosides/docusate sodium tablet PO SCH ×2 (07:35→20:00)
[2019-02-13] MEDS: docusate sod 100mg capsule PO SCH (07:35)
[2019-02-13] MEDS: K and/or MAG REPLACEMENT MC SCH (08:00)
[2019-02-13 11:00] VITALS: BP 123/84
[2019-02-13] MEDS ORDERED: HYDROmorphone 2mg tablet PO PRN (12:25)
[2019-02-13] MEDS: HYDROmorphone 2mg tablet PO PRN ×3 (13:01→23:53)
--- NOTE | 2019-02-13 14:56 | NUR ---
Dr Moffett rounded on patient and assessed the induration on the patients left inner thigh and posterior to the knee. Dr Moffett not concerned at this time. Patient expressed that when wound care changed her wound vac on thursday there was an odor. Dr Moffett stated that he would like pictures when they change the wound vac on Thursday and if there is an odor he would like cultures sent and change dressing to Dakins wet to dry BID. If no odor continue on with current treatment.
--- NOTE | 2019-02-13 18:27 | NUR ---
Problems reprioritized. Patient report given, questions answered & plan of care reviewed with Mervin ALBERTO.
[2019-02-13 20:00] VITALS: BP 114/92
[2019-02-14] VITALS: BP 142/88
[2019-02-14] MEDS: HYDROmorphone 2mg tablet PO PRN ×3 (03:54→21:57)
[2019-02-14 05:08] LABS: BASOPHILS % (AUTO) 0.8 % (0-1); EOSINOPHILS # (AUTO) 0.1 X10'3 (0-0.9); EOSINOPHILS % (AUTO) 2.3 % (0-6); HEMATOCRIT 32.6 % (35.0-45.0); HEMOGLOBIN 10.9 g/dl (12.0-16.0); LYMPHOCYTES # (AUTO) 1.2 X10'3 (1.1-4.8); LYMPHOCYTES % (AUTO) 20.4 % (21-51); MEAN CORPUSCULAR HEMOGLOBIN 31.2 PG (27.0-31.0); MEAN CORPUSCULAR HGB CONC 33.6 g/dL (33.0-36.5); MONOCYTES # (AUTO) 0.7 X10'3 (0-0.9); MONOCYTES % (AUTO) 10.9 % (2-12); NEUTROPHILS % (AUTO) 65.6 % (42-75); PLATELET COUNT 462 X10'3 (140-440); WHITE BLOOD COUNT 6.1 X10'3 (4.5-11.0)
[2019-02-14 05:26] LABS: ALBUMIN 2.8 G/DL (3.4-5.0); ANION GAP 6 (8-16); BLOOD UREA NITROGEN 18 MG/DL (7-18); BUN/CREATININE RATIO 20.5 (6.6-38.0); CALCIUM 8.7 MG/DL (8.5-10.1); CHLORIDE 108 MMOL/L (99-107); CREATININE 0.88 MG/DL (0.40-0.90); GLUCOSE 112 MG/DL (70-104); POTASSIUM 3.8 MMOL/L (3.5-5.1); SODIUM 142 MMOL/L (135-145); TOTAL CARBON DIOXIDE 27.8 MMOL/L (24-32); eGFR 67 ML/MIN
--- NOTE | 2019-02-14 06:30 | NUR ---
Patient in room JAYJAY 345. I have received report from Mervin ALBERTO and had the opportunity to ask questions and assume patient care.
--- NOTE | 2019-02-14 07:04 | NUR ---
Problems reprioritized. Patient report given, questions answered & plan of care reviewed with MIGUEL ÁNGEL. Addendum: 02/14/19 at 0705 by David Mancera RN Amended: Links added.
[2019-02-14] MEDS: docusate sod 100mg capsule PO SCH (08:00)
[2019-02-14] MEDS: K and/or MAG REPLACEMENT MC SCH (08:00)
[2019-02-14] MEDS: sennosides/docusate sodium tablet PO SCH ×3 (08:00→21:58)
[2019-02-14] MEDS: lactobacillus rhamnosus 10,000 MMU CELLS/CAPSULE PO SCH ×2 (08:17→21:57)
[2019-02-14] MEDS: piperacillin/tazo 3.375gm/50ml 50 ML IV SCH ×3 (08:17→23:35)
[2019-02-14] MEDS: heparin, porcine 5000 units/ml vial SQ SCH ×2 (08:18→21:57)
[2019-02-14 09:22] VITALS: BP 141/83
[2019-02-14] MEDS: HYDROmorphone 1 mg/ml syringe IV PRN (09:44)
[2019-02-14 11:30] VITALS: BP 140/84
--- NOTE | 2019-02-14 14:40 | NUR ---
PAGER ID: [phone] MESSAGE: [phone] Reginald Pickett can we up her Dil to 2mg PO? Nancy [phone]
--- NOTE | 2019-02-14 14:52 | NUR ---
PAGER ID: [phone] MESSAGE: [phone] Zachariah Quevedo family member, , is at bedside and would like to see you. Nancy 2019
--- NOTE | 2019-02-14 17:46 | NUR ---
Thigh measurement: 58cm
[2019-02-14 18:30] VITALS: BP 130/75
[2019-02-14] MEDS: acetaminophen 325mg tablet PO PRN (22:04)
[2019-02-15] VITALS: BP 142/87
[2019-02-15 05:38] LABS: BASOPHILS # (AUTO) 0.1 X10'3 (0-0.2); BASOPHILS % (AUTO) 0.9 % (0-1); EOSINOPHILS # (AUTO) 0.2 X10'3 (0-0.9); EOSINOPHILS % (AUTO) 2.5 % (0-6); HEMATOCRIT 31.6 % (35.0-45.0); HEMOGLOBIN 11.1 g/dl (12.0-16.0); LYMPHOCYTES # (AUTO) 1.7 X10'3 (1.1-4.8); LYMPHOCYTES % (AUTO) 24.6 % (21-51); MEAN CORPUSCULAR HEMOGLOBIN 32.5 PG (27.0-31.0); MEAN CORPUSCULAR HGB CONC 35.2 g/dL (33.0-36.5); MEAN CORPUSCULAR VOLUME 92.2 FL (78-98); MEAN PLATELET VOLUME 7.3 FL (7.4-10.4); MONOCYTES # (AUTO) 0.9 X10'3 (0-0.9); MONOCYTES % (AUTO) 13.1 % (2-12); NEUTROPHILS % (AUTO) 58.9 % (42-75); PLATELET COUNT 439 X10'3 (140-440); RED BLOOD COUNT 3.42 X10'6 (4.20-5.60); RED CELL DISTRIBUTION WIDTH 14.6 % (11.5-14.5); WHITE BLOOD COUNT 6.8 X10'3 (4.5-11.0)
[2019-02-15 05:55] LABS: ALBUMIN 2.7 G/DL (3.4-5.0); ANION GAP 6 (8-16); BLOOD UREA NITROGEN 17 MG/DL (7-18); CALCIUM 8.5 MG/DL (8.5-10.1); CHLORIDE 107 MMOL/L (99-107); GLUCOSE 86 MG/DL (70-104); POTASSIUM 3.7 MMOL/L (3.5-5.1); SODIUM 141 MMOL/L (135-145); eGFR 58 ML/MIN
--- NOTE | 2019-02-15 06:38 | NUR ---
Problems reprioritized. Patient report given, questions answered & plan of care reviewed with MIGUEL ÁNGEL. Addendum: 02/15/19 at 0639 by David Mancera RN Amended: Links added.
--- NOTE | 2019-02-15 06:40 | NUR ---
Patient in room JAYJAY 345. I have received report from Mervin ALBERTO and had the opportunity to ask questions and assume patient care.
[2019-02-15 07:05] VITALS: BP 141/83
[2019-02-15] MEDS: docusate sod 100mg capsule PO SCH (08:00)
[2019-02-15] MEDS: sennosides/docusate sodium tablet PO SCH ×2 (08:00→20:00)
[2019-02-15] MEDS: heparin, porcine 5000 units/ml vial SQ SCH ×2 (08:02→20:16)
[2019-02-15] MEDS: piperacillin/tazo 3.375gm/50ml 50 ML IV SCH ×2 (08:02→16:17)
[2019-02-15] MEDS: HYDROmorphone 2mg tablet PO PRN ×4 (08:03→20:17)
[2019-02-15] MEDS: lactobacillus rhamnosus 10,000 MMU CELLS/CAPSULE PO SCH ×2 (08:03→20:16)
[2019-02-15] MEDS: K and/or MAG REPLACEMENT MC SCH (08:36)
[2019-02-15 12:39] VITALS: BP 131/72
--- NOTE | 2019-02-15 13:02 | NUR ---
Patient in room JAYJAY 345. I have received report from Nancy ALBERTO and had the opportunity to ask questions and assume patient care.
--- NOTE | 2019-02-15 15:15 | NUR ---
Wound care POC. Primary nurse reported that there was some leaking from the vac dressing that had been patched with tape and requested I check it. Arrived at bedside and explained procedure to pt. Patched vac with drape with successful seal. Addendum: 02/15/19 at 1519 by Gt Morin RN Amended: Links added.
--- NOTE | 2019-02-15 15:59 | NUR ---
reassessment: Pt PO 100% meals meeting needs. LBM 02/14. Will continue to monitor. Rec: 1. continue regular diet 2. bowel care as needed 3. wt per rx Addendum: 02/15/19 at [address] Amended: Links added.
--- NOTE | 2019-02-15 16:33 | NUR ---
measured thigh circumference above wound - 55.5 cm
--- NOTE | 2019-02-15 18:20 | NUR ---
Problems reprioritized. Patient report given, questions answered & plan of care reviewed with Darcy Rushing RN.
[2019-02-15 20:00] VITALS: BP 136/104
[2019-02-16] VITALS: BP 122/80
[2019-02-16] MEDS: piperacillin/tazo 3.375gm/50ml 50 ML IV SCH ×2 (00:17→07:08)
[2019-02-16] MEDS: HYDROmorphone 2mg tablet PO PRN ×3 (00:17→08:24)
--- NOTE | 2019-02-16 00:28 | NUR ---
wound vac canister changed.
[2019-02-16 05:23] LABS: BASOPHILS # (AUTO) 0.1 X10'3 (0-0.2); BASOPHILS % (AUTO) 1.1 % (0-1); EOSINOPHILS # (AUTO) 0.2 X10'3 (0-0.9); EOSINOPHILS % (AUTO) 2.7 % (0-6); HEMATOCRIT 34.7 % (35.0-45.0); HEMOGLOBIN 11.6 g/dl (12.0-16.0); LYMPHOCYTES # (AUTO) 1.2 X10'3 (1.1-4.8); LYMPHOCYTES % (AUTO) 21.2 % (21-51); MEAN CORPUSCULAR HEMOGLOBIN 31.2 PG (27.0-31.0); MEAN CORPUSCULAR HGB CONC 33.5 g/dL (33.0-36.5); MEAN CORPUSCULAR VOLUME 93.3 FL (78-98); MEAN PLATELET VOLUME 7.3 FL (7.4-10.4); MONOCYTES # (AUTO) 0.7 X10'3 (0-0.9); MONOCYTES % (AUTO) 11.3 % (2-12); NEUTROPHILS # (AUTO) 3.7 X10'3 (1.8-7.7); NEUTROPHILS % (AUTO) 63.7 % (42-75); PLATELET COUNT 455 X10'3 (140-440); RED BLOOD COUNT 3.72 X10'6 (4.20-5.60); RED CELL DISTRIBUTION WIDTH 14.7 % (11.5-14.5); WHITE BLOOD COUNT 5.8 X10'3 (4.5-11.0)
--- NOTE | 2019-02-16 06:48 | NUR ---
Problems reprioritized. Patient report given, questions answered & plan of care reviewed with DOLLY Rodriguez.
[2019-02-16] MEDS: lactobacillus rhamnosus 10,000 MMU CELLS/CAPSULE PO SCH (07:06)
[2019-02-16] MEDS: heparin, porcine 5000 units/ml vial SQ SCH (07:12)
--- NOTE | 2019-02-16 07:16 | NUR ---
Patient in room JAYJAY 345. I have received report from EMILI ALBERTO and had the opportunity to ask questions and assume patient care.
[2019-02-16] MEDS: K and/or MAG REPLACEMENT MC SCH (07:25)
[2019-02-16] MEDS: docusate sod 100mg capsule PO SCH (07:26)
[2019-02-16] MEDS: sennosides/docusate sodium tablet PO SCH (07:27)
[2019-02-16] MEDS: HYDROmorphone 1 mg/ml syringe IV PRN (10:26)
[2019-02-16] MEDS ORDERED: HYDR2TAB7 PO (11:03)
--- NOTE | 2019-02-16 14:49 | NUR ---
patient seen by Dr Pathak is for Discharge. wound team changed wound vac home vac now in place. All DC instructions given to patient . patient awaiting ride home .
--- NOTE | 2019-02-16 16:30 | NUR ---
patient DC home via private car with friend home wound vac in place all DC instructions given.
== END 2019-02-16 14:25 | disposition home or self-care (01) | DRG 854 ==
LOC: ER 19:37 → ED HOLD 23:26 → ORTHO 4S 01-24 00:10 → SUR 3N 02-02 21:50
PROVIDERS: ADMIT Family Medicine; ATTEND Internal Medicine
PROC: BW251ZZ Computerized Tomography (CT Scan) of Chest, Abdomen and Pelvis using Low Osmolar Contrast (ICD-10-PCS; 2019-01-23)
PROC: 3E0234Z Introduction of Serum, Toxoid and Vaccine into Muscle, Percutaneous Approach (ICD-10-PCS; 2019-01-25)
PROC: 0KCT0ZZ Extirpation of Matter from Left Lower Leg Muscle, Open Approach (ICD-10-PCS; 2019-02-02)
PROC: BQ2S1ZZ Computerized Tomography (CT Scan) of Left Lower Extremity using Low Osmolar Contrast (ICD-10-PCS; 2019-02-02)
PROC: 0JBP0ZZ Excision of Left Lower Leg Subcutaneous Tissue and Fascia, Open Approach (ICD-10-PCS; principal; 2019-02-02 20:07)
DX: A41.9 Sepsis, unspecified organism (principal); L03.116 Cellulitis of left lower limb; M62.82 Rhabdomyolysis; N17.9 Acute kidney failure, unspecified; E11.22 Type 2 diabetes mellitus with diabetic chronic kidney disease; E87.6 Hypokalemia; F15.10 Other stimulant abuse, uncomplicated; F17.210 Nicotine dependence, cigarettes, uncomplicated; G89.29 Other chronic pain; I12.9 Hypertensive chronic kidney disease with stage 1 through stage 4 chronic kidney disease, or unspecified chronic kidney disease; N18.9 Chronic kidney disease, unspecified; M54.9 Dorsalgia, unspecified; S80.12XA Contusion of left lower leg, initial encounter; S87.82XA Crushing injury of left lower leg, initial encounter; Z59.0 Homelessness; Z86.73 Personal history of transient ischemic attack (TIA), and cerebral infarction without residual deficits; Z23 Encounter for immunization; V89.2XXA Person injured in unspecified motor-vehicle accident, traffic, initial encounter; Y92.89 Other specified places as the place of occurrence of the external cause; Z98.51 Tubal ligation status; Z79.899 Other long term (current) drug therapy; Z71.6 Tobacco abuse counseling; Z71.51 Drug abuse counseling and surveillance of drug abuser
CPT/HCPCS: 36415; 70450; 71045; 71260; 73552; 73590; 73701; 73706; 73723; 74177; 80047; 80048; 80053; 80305; 80320; 82550; 83605; 83735; 83874; 84100; 84145; 85025; 85610; 85730; 86885; 86900; 86901; 87040; 87070; 87075; 87076; 87077; 87081; 87102; 87186; 93005; 93971; 96361; 96374; 96375; 96376; 97110; 97116; 97161; 97530; 97535; 99291; A4618; A6253; A6446; A7000; A9585; G0378; J1100; J1170; J1644; J1885; J2001; J2250; J2270; J2405; J2543; J2704; J3010; J3490; J7030; J7120; Q2037; Q9967

== ENCOUNTER 2019-02-18 09:25 | Outpatient (CLI) | payer BC, MEDICAID ==
[~2019-02-18 09:25] MED LIST changes: +HYDR2TAB7 PO; +NO HOME MEDS
[2019-02-18] MEDS ORDERED: LIDOcaine 2% 5ml jelly ONE ×2 (10:27)
== END 2019-02-18 11:35 | disposition home or self-care (01) ==
LOC: WOUND CARE 09:25 → EDSTATUS 09:30 → WOUND CARE 11:35
PROVIDERS: ATTEND Surgery
DX: T81.89XA Other complications of procedures, not elsewhere classified, initial encounter (principal); L97.122 Non-pressure chronic ulcer of left thigh with fat layer exposed; E11.22 Type 2 diabetes mellitus with diabetic chronic kidney disease; I12.9 Hypertensive chronic kidney disease with stage 1 through stage 4 chronic kidney disease, or unspecified chronic kidney disease; N18.9 Chronic kidney disease, unspecified; M54.5 Low back pain; G89.29 Other chronic pain; F17.210 Nicotine dependence, cigarettes, uncomplicated; F15.10 Other stimulant abuse, uncomplicated; Z71.6 Tobacco abuse counseling; Z98.51 Tubal ligation status; Z79.2 Long term (current) use of antibiotics; Z79.899 Other long term (current) drug therapy; Z86.73 Personal history of transient ischemic attack (TIA), and cerebral infarction without residual deficits; Z71.51 Drug abuse counseling and surveillance of drug abuser; Y83.8 Other surgical procedures as the cause of abnormal reaction of the patient, or of later complication, without mention of misadventure at the time of the procedure
CPT/HCPCS: 97606; A6222; A6223; A4456; A4663

== ENCOUNTER 2019-02-22 13:18 | Emergency (ER) | payer BC, MEDICAID ==
[~2019-02-22] VITALS: Ht 172.7 cm; Wt 75.0 kg
[~2019-02-22 13:18] MED LIST changes: -BACDS PO; -HYDR-3965 PO; -NO HOME MEDS; -OMEP-84 PO; -ONDA4TAB6 PO
--- NOTE | 2019-02-22 16:03 | NUR ---
WOUND INFECTION EDUCATION PROVIDED BY WOUND CARE 1. Patient instructed to call their primary doctor, or go the ED immediately if any of the following symptoms occur: * Increased pain in wound * Increase in drainage from the wound * Redness in the skin surrounding the wound * Warmth in the skin surrounding the wound * Bleeding from the wound * Temperature of 101 or greater 2. If any of these occur while in the hospital tell a nurse immediately. WOUND VAC EDUCATION PROVIDED BY WOUND CARE 1. Patient instructed to call the Wound Center or their Home Health Agency immediately if: * They notice a change in the color or amount of the fluid in the canister. * Their wound looks more red than usual or has a foul smell. * The skin around their wound looks reddened or irritated. * The dressing feels loose or appears to be loose. * They experience any increase or changes in their pain. * The alarm will not turn off. 2. Patient instructed that they should not be disconnected from suction for more than 2 hours at a time. * If they are not able to get the suction back on, they need to remove the dressing and take all of the foam out of the wound. * Then moisten sterile gauze with normal saline and place on/in the wound. * Change the dressing once a day until arrangements have been made to replace the wound vac dressing. 3. Patient instructed to turn the wound vac machine OFF and call 911 or go to the ED immediately if their canister fills rapidly with blood. 4. If any of these occur while in the hospital tell a nurse immediately. Addendum: 02/22/19 at 1604 by Meme Nicholas RN Amended: Links added.
[2019-02-22 16:05] VITALS: BP 162/99
== END 2019-02-22 16:07 | disposition home or self-care (01) ==
LOC: ER 13:18
DX: E11.622 Type 2 diabetes mellitus with other skin ulcer (principal); L97.929 Non-pressure chronic ulcer of unspecified part of left lower leg with unspecified severity; I10 Essential (primary) hypertension; G89.29 Other chronic pain; F10.99 Alcohol use, unspecified with unspecified alcohol-induced disorder; F17.210 Nicotine dependence, cigarettes, uncomplicated; Z98.51 Tubal ligation status; Z60.2 Problems related to living alone; Z56.0 Unemployment, unspecified; Z88.6 Allergy status to analgesic agent; Z79.899 Other long term (current) drug therapy; Y90.9 Presence of alcohol in blood, level not specified
CPT/HCPCS: 99282; 99283

== ENCOUNTER 2019-02-24 10:40 | Outpatient (CLI) | payer BC, MEDICAID | END 2019-02-24 11:55 | disposition home or self-care (01) | LOC: WOUND CARE 10:40 | PROVIDERS: ATTEND Surgery | DX: T81.89XD Other complications of procedures, not elsewhere classified, subsequent encounter (principal); L97.122 Non-pressure chronic ulcer of left thigh with fat layer exposed; E11.22 Type 2 diabetes mellitus with diabetic chronic kidney disease; I12.9 Hypertensive chronic kidney disease with stage 1 through stage 4 chronic kidney disease, or unspecified chronic kidney disease; N18.9 Chronic kidney disease, unspecified; M54.5 Low back pain; G89.29 Other chronic pain; F17.210 Nicotine dependence, cigarettes, uncomplicated; F15.10 Other stimulant abuse, uncomplicated; Z71.6 Tobacco abuse counseling; Z98.51 Tubal ligation status; Z79.2 Long term (current) use of antibiotics; Z79.899 Other long term (current) drug therapy; Z86.73 Personal history of transient ischemic attack (TIA), and cerebral infarction without residual deficits; Z71.51 Drug abuse counseling and surveillance of drug abuser; Y83.8 Other surgical procedures as the cause of abnormal reaction of the patient, or of later complication, without mention of misadventure at the time of the procedure | CPT/HCPCS: 97606; A4215; A4456; A4663; A6154 ==

== ENCOUNTER 2019-02-28 10:45 | Day surgery (SDC) | payer BC, MEDICAID ==
[2019-02-28] MEDS ORDERED: LIDOcaine 2% 5ml jelly ONE (11:45)
== END 2019-02-28 13:37 | disposition home or self-care (01) ==
LOC: WOUND CARE 10:45
PROVIDERS: ATTEND Surgery
DX: T81.89XD Other complications of procedures, not elsewhere classified, subsequent encounter (principal); L97.122 Non-pressure chronic ulcer of left thigh with fat layer exposed; E11.22 Type 2 diabetes mellitus with diabetic chronic kidney disease; I12.9 Hypertensive chronic kidney disease with stage 1 through stage 4 chronic kidney disease, or unspecified chronic kidney disease; N18.9 Chronic kidney disease, unspecified; M54.5 Low back pain; G89.29 Other chronic pain; F17.210 Nicotine dependence, cigarettes, uncomplicated; F15.10 Other stimulant abuse, uncomplicated; Z71.6 Tobacco abuse counseling; Z98.51 Tubal ligation status; Z79.2 Long term (current) use of antibiotics; Z79.899 Other long term (current) drug therapy; Z86.73 Personal history of transient ischemic attack (TIA), and cerebral infarction without residual deficits; Z71.51 Drug abuse counseling and surveillance of drug abuser; Y83.8 Other surgical procedures as the cause of abnormal reaction of the patient, or of later complication, without mention of misadventure at the time of the procedure
CPT/HCPCS: 97597; A6222; A6223; A4663; A6234

== ENCOUNTER 2024-01-01 05:28 | Inpatient (IN) | payer BC, MEDICAID ==
[2023-12-29 15:29] LABS: BASOPHILS % (AUTO) 0.7 % (0-1); EOSINOPHILS # (AUTO) 0.1 X10'3 (0-0.9); EOSINOPHILS % (AUTO) 1.9 % (0-6); LYMPHOCYTES # (AUTO) 1.7 X10'3 (1.1-4.8); LYMPHOCYTES % (AUTO) 29.1 % (21-51); MEAN CORPUSCULAR HEMOGLOBIN 30.3 PG (27.0-31.0); MEAN CORPUSCULAR HGB CONC 33.2 g/dL (33.0-36.5); MEAN CORPUSCULAR VOLUME 91.2 FL (78-98); MEAN PLATELET VOLUME 7.3 FL (7.4-10.4); MONOCYTES # (AUTO) 0.6 X10'3 (0-0.9); NEUTROPHILS # (AUTO) 3.4 X10'3 (1.8-7.7); NEUTROPHILS % (AUTO) 58.3 % (42-75); PRE OP HEMATOCRIT 39.6 % (35.0-45.0); PRE OP HEMOGLOBIN 13.1 g/dL (12.0-16.0); PRE OP PLATELET COUNT 364 X10'3 (140-440); PRE OP WHITE BLOOD COUNT 5.9 10'3 (4.8-10.8); RED BLOOD COUNT 4.34 X10'6 (4.20-5.60); RED CELL DISTRIBUTION WIDTH 13.2 % (11.5-14.5)
[2023-12-29 15:42] LABS: PRE OP PROTIME 10.1 SECONDS (9.0-12.0)
[2023-12-29 15:56] LABS: ALBUMIN 3.2 G/DL (3.4-5.0); ALBUMIN/GLOBULIN RATIO 0.9 (1.1-1.5); ALKALINE PHOSPHATASE 79 IU/L (46-116); BLOOD UREA NITROGEN 21 MG/DL (7-18); BUN/CREATININE RATIO 22.1 (10.0-20.0); CALCIUM 8.7 MG/DL (8.5-10.1); CHLORIDE 105 MMOL/L (99-107); CREATININE 0.95 MG/DL (0.40-0.90); PRE OP ALT 18 U/L (30-65); PRE OP ANION GAP 5 (8-16); PRE OP AST 16 U/L (10-37); PRE OP BILIRUB, TOTAL 0.2 MG/DL (0.0-1.0); PRE OP GLUCOSE 74 MG/DL (70-104); PRE OP POTASSIUM 3.8 MMOL/L (3.4-5.1); PRE OP SODIUM 141 MMOL/L (135-145); TOTAL PROTEIN 6.9 G/DL (6.4-8.2); eGFR 60 ML/MIN
[2024-01-01] VITALS (26 sets, daily range): BP systolic 95–141; BP diastolic 57–90; PULSE 51–70; RESP 10–20; TEMP 97.2–98.3; O2SAT 95–100
[~2024-01-01] VITALS: Ht 167.6 cm; Wt 76.6 kg
[~2024-01-01 05:28] MED LIST changes: -CYCL-1 PO; -HYDR-4383 PO; -HYDR2TAB7 PO; -IBUP-1985 PO; +METO100T7 PO; -ONDA8TAB6 PO
[2024-01-01] MEDS: DOCUMENT DATE & TIME OF BETA-BLOCKER PO ONE (05:30)
[2024-01-01] MEDS: tranexamic acid inj. 1,000 MG in normal saline IV soln 100ML IV ONE (06:24)
[2024-01-01] MEDS: ringers solution, lacted 1,000 ML IV SCH ×2 (06:24→09:54)
[2024-01-01] MEDS: famotidine 20mg tablet PO ONE (06:25)
[2024-01-01] MEDS: cefazolin 2gm/D5W 100mL 100 ML IV ONE (06:25)
[2024-01-01] MEDS: gabapentin 300mg capsule PO ONE (06:25)
[2024-01-01] MEDS: vancomycin 1,500 MG in NS 300ml IV soln IV ONE (06:25)
[2024-01-01] MEDS: celeCOXIB 100mg capsule PO ONE (06:26)
[2024-01-01] MEDS: acetaminophen 325mg tablet PO ONE (06:26)
[2024-01-01] MEDS: metoclopramide 5 mg/ml inj IV ONE (06:37)
[2024-01-01] MEDS: oxyCODONE SR 10mg (sust. release) tab -2 tabs (20mg) PO ONE (07:04)
[2024-01-01] MEDS ORDERED: labetalol 20mg/4ml (5mg/ml) syringe IV PRN (07:20)
[2024-01-01] MEDS ORDERED: ondansetron/PF 4mg/2ml inj IV PRN ×2 (07:20→07:35)
[2024-01-01] MEDS ORDERED: hydrALAZINE 20mg/ml inj. IV PRN (07:20)
[2024-01-01] MEDS ORDERED: morphine 4 MG/ML inj SYRINge IV PRN (07:20)
[2024-01-01] MEDS ORDERED: fentaNYL/PF 50MCG/1 ML 2ML syringe IV PRN ×2 (07:20)
[2024-01-01] MEDS ORDERED: morphine 2 MG/ML inj. syringe IV PRN (07:20)
[2024-01-01] MEDS ORDERED: BUPIVAcaine/PF 7.5 mg/ml (0.75%) 30ml vial ONE (07:23)
[2024-01-01] MEDS ORDERED: diphenhydrAMINE 25mg capsule PO PRN ×2 (07:35)
[2024-01-01] MEDS ORDERED: bisacodyl 10mg suppository rectal RC PRN (07:35)
[2024-01-01] MEDS ORDERED: naloxone 0.4 mg/ml inj IV PRN (07:35)
[2024-01-01] MEDS ORDERED: acetaminophen 325mg tablet PO PRN (07:35)
[2024-01-01] MEDS ORDERED: magnesium hydroxide 30ml (MOM) UD suspension PO PRN (07:35)
[2024-01-01] MEDS: multivitamins, therapeutics tablet PO SCH (08:00)
[2024-01-01] MEDS: ascorbic acid 500mg tablet PO SCH (08:00)
[2024-01-01] MEDS: vancomycin/NS 1 GM ADD-VANTAGE 250 ML IV SCH (08:00)
[2024-01-01] MEDS: gabapentin 300mg capsule PO SCH (08:00)
[2024-01-01] MEDS: metoprolol succinate 25mg (24-HOUR) SR. Tablet PO SCH (08:00)
[2024-01-01] MEDS: aspirin 325mg tablet PO SCH (08:30)
[2024-01-01] MEDS: epiNEPHrine 1 mg/ml inj ONE (08:45)
[2024-01-01] MEDS: cloNIDine hcl/PF 100mcg/ml inj ONE (08:45)
[2024-01-01] MEDS: ketorolac trometh 30MG/ML vial 30 MG/ML VIAL ONE (08:46)
[2024-01-01] MEDS: ROPIVAcaine 0.5% (5mg/ml) 30ml vial ONE ×2 (08:47→08:48)
[2024-01-01] MEDS: vancomycin 1,000mg inj ONE (08:48)
[2024-01-01] MEDS: tranexamic acid inj. 750 MG in normal saline 100ml IV soln 92.5 ML IV ONE (12:51)
[2024-01-01] MEDS: HYDROmorphone 1 mg/ml syringe IV PRN (12:57)
[2024-01-01] MEDS: HYDROcodone/acetaminophen 10/325mg tab PO PRN (14:50)
[2024-01-01] MEDS: potassium cl 20mEq in 1/2 NS 1,000 ML IV SCH (15:35)
[2024-01-01] MEDS: cefazolin 2gm/D5W 100mL 100 ML IV SCH (17:18)
[2024-01-01] MEDS: sennosides 8.6mg tablet PO SCH (20:05)
[2024-01-02 02:00] VITALS: BP 136/78; PULSE 84; RESP 17; TEMP 98; O2SAT 95
[2024-01-02] MEDS: HYDROcodone/acetaminophen 10/325mg tab PO PRN (02:18)
[2024-01-02] MEDS: HYDROmorphone inj. 0.5 MG/0.5 ML DISP.SYRIN IV PRN (04:20)
[2024-01-02 05:21] VITALS: O2SAT 97
[2024-01-02 06:00] VITALS: BP 160/91; PULSE 66; RESP 18; TEMP 99.3; O2SAT 97
[2024-01-02 06:31] LABS: BASOPHILS % (AUTO) 0.3 % (0-1); EOSINOPHILS # (AUTO) 0.1 X10'3 (0-0.9); EOSINOPHILS % (AUTO) 1.3 % (0-6); HEMATOCRIT 38.6 % (35.0-45.0); LYMPHOCYTES # (AUTO) 1.1 X10'3 (1.1-4.8); LYMPHOCYTES % (AUTO) 14.4 % (21-51); MEAN CORPUSCULAR HEMOGLOBIN 30.8 PG (27.0-31.0); MEAN CORPUSCULAR HGB CONC 33.8 g/dL (33.0-36.5); MEAN CORPUSCULAR VOLUME 91.2 FL (78-98); MEAN PLATELET VOLUME 7.3 FL (7.4-10.4); MONOCYTES # (AUTO) 0.8 X10'3 (0-0.9); MONOCYTES % (AUTO) 9.9 % (2-12); NEUTROPHILS # (AUTO) 5.8 X10'3 (1.8-7.7); NEUTROPHILS % (AUTO) 74.1 % (42-75); PLATELET COUNT 314 X10'3 (140-440); RED BLOOD COUNT 4.23 X10'6 (4.20-5.60); WHITE BLOOD COUNT 7.8 X10'3 (4.5-11.0)
[2024-01-02 06:37] LABS: ANION GAP 5 (8-16); CHLORIDE 104 MMOL/L (99-107); POTASSIUM 4.7 MMOL/L (3.5-5.1); SODIUM 139 MMOL/L (135-145); TOTAL CARBON DIOXIDE 30.2 MMOL/L (24-32)
[2024-01-02 08:00] VITALS: RESP 18; O2SAT 99
[2024-01-02 10:00] VITALS: BP 133/75; PULSE 72; RESP 20; TEMP 98.6; O2SAT 95
[2024-01-02] MEDS ORDERED: celeCOXIB 100mg capsule PO SCH (20:00)
== END 2024-01-02 17:30 | disposition home or self-care (01) | DRG 324 ==
LOC: PAS IN 05:28 → ORTHO 4S 11:20
PROVIDERS: ADMIT Orthopaedic Surgery; ATTEND Orthopaedic Surgery
PROC: 0SR906Z Replacement of Right Hip Joint with Oxidized Zirconium on Polyethylene Synthetic Substitute, Open Approach (ICD-10-PCS; principal; 2024-01-01 07:23)
DX: M16.11 Unilateral primary osteoarthritis, right hip (principal); Z79.899 Other long term (current) drug therapy
CPT/HCPCS: 36415; 72170; 80051; 80053; 82948; 85025; 85610; 85730; 87081; 97110; 97116; 97162; A7000; C1776; G0378; J0171; J0690; J0735; J1170; J1885; J2250; J2765; J2795; J3010; J3370; J3480; J3490; J7120; S0020

== ENCOUNTER 2024-06-26 11:42 | Emergency (ER) | payer MEDICAID ==
[~2024-06-26] VITALS: Ht 167.6 cm; Wt 80.3 kg
[2024-06-26 11:54] VITALS: BP 156/98; PULSE 89; RESP 14; TEMP 96.7; O2SAT 97
== END 2024-06-26 14:07 | disposition left against medical advice (07) ==
LOC: ER 11:42
DX: R51.9 Headache, unspecified (principal); Z53.21 Procedure and treatment not carried out due to patient leaving prior to being seen by health care provider

== ENCOUNTER 2025-04-16 15:10 | Emergency (ER) | payer MEDICAID ==
[~2025-04-16] VITALS: Ht 172.7 cm; Wt 75.0 kg
[2025-04-16 15:27] VITALS: BP 235/114; PULSE 112; RESP 15; TEMP 96.8; O2SAT 98
--- NOTE | 2025-04-16 17:10 | Physician Documentation ---
History of Present Illness ~ Chief Complaint: Nose bleed Stated Complaint: EPISTAXIS Time Seen by MD: 15:38 OK to notify your PCP?: Yes Primary Medical Doctor: Zuhair ARGUELLO Source: patient Mode of Arrival: POV Exam Limitations: no limitations HPI This is a 59-year-old female who comes in complaining of the nosebleed. She denies trauma to the area. The nosebleed began earlier this morning around 930. The patient is not take blood thinners however she has a history of hypertension in her blood pressure was found to be 230/114 at the time of triage. Medication Reconciliation Allergies: Coded Allergies: No Known Drug Allergies (Verified Allergy, Unknown, 04/16/25) Scheduled Metoprolol Succinate* (Toprol Xl*), 1 TAB PO DAILY, (Reported) Past Medical History Past Medical History: Hypertension, Diabetes, Chronic Pain, Chronic Back Pain Past Surgical History: orthopedic surgeries, tubal ligation Patient History: Patient reports no known family medical history. Smoking Status: Current every day smoker Alcohol Use: Occasionally Drug Use: none Lives with: Alone Lives In: Home Occupation: unemployed Physical Exam Vital Signs: Temperature: 96.8, Source: Temporal, Heart Rate: 112, Respiratory Rate: 15, BP: 235/114, Pulse Oximetry: 98, Weight: 75.000 General Appearance: alert, WD/WN, no apparent distress Progress Results/Orders Results/Orders Vital Signs 04/16/25 15:27 Temp 96.8 Pulse 112 Resp 15 B/P (MAP) 235/114 Pulse Ox 98 Medical Decision Making Additional information obtaine: N/A Findings The patient is quickly evaluated through triage and hopefully taken back to 19. The patient seems to have eloped at some point. Ear Diff. Dx: Considerations: Include: Abrasion, Cerumen impaction, Foreign body, Otitis externa, Barotrauma, Otitis media, Perforation, Referred pain- dental, Referred pain-pharyngitis, Referred pain-sinusitis, Referred pain-TMJ syn., Tympanic Membrane Injury, Other Eye Diff. Dx: Considerations: Include: Chalazoin, Conjuctivits-allergic, Conjuctivitis-bacterial, Conjuctivits-chlamydial, Conjuctivitis-viral, Corneal abrasion, Corneal laceration, Corneal ulceration, Foreign body-conjuctiva, Foreign body-corneal, Foreign body-intraocular, Foreign body-lid, Glaucoma, Globe rupture, Hordeolum, Iritis, Orbital cellulitis, Periobital cellulitis, Re tinal artery occulsion, Retinal vein occlusion, Rust ring, Subconjunctival hem, Ultraviolet keratitis, Uveitis, Vitreous hemorrhage, Other Nose Diff. Dx: Considerations: Include: Abrasion, Anterior nasal bleed, Avulsion, Contusion, Coagulopathy, Fracture-nasal bone, Fracture-septum, Hypertension, Laceration, Other, Posterior nasal bleed, Retained foreign body, Septal hematoma Tooth Diff. Dx: Considerations: Include: Alveolar fracture, Aveolar osteitis, ANUG, Facial cellulitis, Periapical abscess, Periodontal abscess, Post- extraction bleeding, Pulpitis, Trigeminal neuralgia, Tooth-avulsion, Tooth- eruption, Tooth-fracture, Tooth-subluxation, Other Throat Diff Dx: Considerations: Include: AIDS, Epiglottitis, Esophageal candidiasis, Hand foot mouth disease, Herpangina, Herpetic stomatitis, Herpes simplex, Infection mononucleosis, Immunodeficiency, Brad's angina, Peritonsillar abscess, Peritonsillar cellulitis, Pharyngitis-diphtheria, Pharyngitis-strepococcal, Pharyngitis-viral, Thrush, URI, Other Additional Comment Anterior epistaxis. Posterior epistaxis. Hypertension. Departure Disposition: 07 LEFT AWOL/ELOPED Impression: Primary Impression: Epistaxis Referrals: NO PRIMARY CARE PROVIDER (PCP) Signature Scribe Signature: No scribe Attestation: The note accurately reflects work and decisions made by me.Oz TEJADA 04/16/25 17:10 OZ VERDUGO Apr 16, 2025 17:10
== END 2025-04-16 17:02 | disposition left against medical advice (07) ==
LOC: ER 15:11
DX: R04.0 Epistaxis (principal); E11.9 Type 2 diabetes mellitus without complications; F17.200 Nicotine dependence, unspecified, uncomplicated; G89.29 Other chronic pain; I10 Essential (primary) hypertension; Z98.51 Tubal ligation status; Z79.899 Other long term (current) drug therapy; Z56.0 Unemployment, unspecified; Z72.89 Other problems related to lifestyle; Z60.2 Problems related to living alone
CPT/HCPCS: 99282